=== PATIENT | female | born 1950 | race Caucasian/White ===

== ENCOUNTER → 2023-09-22 14:45 | Outpatient (REF) | payer MEDICARE, OTHER, SELFPAY | LOC: RCS 14:45 | PROVIDERS: ATTENDING PHYSICIAN Family Medicine | DX: E78.00 Pure hypercholesterolemia, unspecified (principal) | CPT/HCPCS: 93306 ==

== ENCOUNTER → 2024-01-24 06:40 | Day surgery (SDC) | payer MEDICARE, OTHER, SELFPAY | LOC: GI 06:40 | PROVIDERS: ATTENDING PHYSICIAN Internal Medicine Gastroenterology | DX: K63.5 Polyp of colon (principal); K57.30 Diverticulosis of large intestine without perforation or abscess without bleeding; K64.8 Other hemorrhoids; R19.4 Change in bowel habit; K59.00 Constipation, unspecified; R19.7 Diarrhea, unspecified; K29.50 Unspecified chronic gastritis without bleeding; R12 Heartburn | CPT/HCPCS: 45380; 43239; 88305; 88342 ==

== ENCOUNTER → 2024-02-04 07:26 | Outpatient (REF) | payer MEDICARE, OTHER, SELFPAY ==
[2024-02-04 08:52] LABS: ALT (SGPT) 25 U/L (0-35); AST (SGOT) 26 U/L (14-36); Albumin 4.4 g/dl (3.5-5.0); Alkaline Phosphatase 73 U/L (38-126); Blood Urea Nitrogen 20 mg/dl (7-17); Calcium 9.8 mg/dl (8.4-10.2); Carbon Dioxide 29 mmol/L (22-30); Chloride 105 mmol/L (98-107); Glucose 107 mg/dl (70-99); HDL Cholesterol 66 mg/dl; LDL Cholesterol, Calculated 117 mg/dl; Potassium 4.6 mmol/L (3.5-5.1); Sodium 141 mmol/L (135-145); Total Bilirubin 0.9 mg/dl (0.2-1.3); Total Cholesterol 199 mg/dl (50-199); Triglyceride 82 mg/dl (10-149); Very Low Density Lipoprotein 16 mg/dl (0-30); eGFR 52.73
[2024-02-04 10:21] LABS: Glycohemoglobin (HgbA1c) 5.6 % (4.0-5.6)
== END ==
LOC: REG 07:26
PROVIDERS: ATTENDING PHYSICIAN Family Medicine
DX: R73.01 Impaired fasting glucose (principal); E78.00 Pure hypercholesterolemia, unspecified; E06.3 Autoimmune thyroiditis
CPT/HCPCS: 36415; 80053; 80061; 83036; 84443

== ENCOUNTER → 2024-06-22 14:22 | Outpatient (REF) | payer MEDICARE, OTHER, SELFPAY | LOC: WDC 14:22 | PROVIDERS: ATTENDING PHYSICIAN Obstetrics & Gynecology; FAMILY PHYSICIAN Family Medicine | DX: Z12.31 Encounter for screening mammogram for malignant neoplasm of breast (principal) | CPT/HCPCS: 77063; 77067 ==

== ENCOUNTER → 2024-09-12 07:22 | Outpatient (REF) | payer MEDICARE, OTHER, SELFPAY ==
[2024-09-12 09:00] LABS: ALT (SGPT) 21 U/L (0-35); AST (SGOT) 24 U/L (14-36); Albumin 4.6 g/dl (3.5-5.0); Alkaline Phosphatase 84 U/L (38-126); Blood Urea Nitrogen 28 mg/dl (7-17); Calcium 9.8 mg/dl (8.4-10.2); Carbon Dioxide 30 mmol/L (22-30); Chloride 103 mmol/L (98-107); Glucose 101 mg/dl (70-99); HDL Cholesterol 74 mg/dl; LDL Cholesterol, Calculated 119 mg/dl; Potassium 4.4 mmol/L (3.5-5.1); Sodium 139 mmol/L (135-145); Total Bilirubin 0.8 mg/dl (0.2-1.3); Total Cholesterol 209 mg/dl (50-199); Total Protein 7.4 g/dl (6.3-8.2); Triglyceride 80 mg/dl (10-149); Very Low Density Lipoprotein 16 mg/dl (0-30)
[2024-09-12 09:17] LABS: Glycohemoglobin (HgbA1c) 5.7 % (4.0-5.6)
[2024-09-12 09:29] LABS: TSH Reflex To Free T4 3.28 uIU/ml (0.47-4.68)
[2024-09-12 09:49] LABS: Vitamin B12 829 pg/ml (239-931)
[2024-09-14 09:02] LABS: SSA 52 (Ro)(ENA) Ab, IgG 1 AU/mL (0-40); SSA 60 (Ro)(ENA) Ab, IgG 1 AU/mL (0-40); SSB (La)(ENA) Ab, IgG 0 AU/mL (0-40)
== END ==
LOC: REG 07:22
PROVIDERS: ATTENDING PHYSICIAN Family Medicine; FAMILY PHYSICIAN Specialist
DX: G60.3 Idiopathic progressive neuropathy (principal); E11.42 Type 2 diabetes mellitus with diabetic polyneuropathy; D51.8 Other vitamin B12 deficiency anemias; R73.01 Impaired fasting glucose; E78.00 Pure hypercholesterolemia, unspecified; E06.3 Autoimmune thyroiditis
CPT/HCPCS: 36415; 80053; 80061; 82607; 82784; 83036; 83521; 84155; 84165; 84443; 86235; 86334

== ENCOUNTER → 2024-09-29 14:45 | Outpatient (REF) | payer MEDICARE, OTHER, SELFPAY | LOC: REG 14:45 | PROVIDERS: ATTENDING PHYSICIAN Specialist; FAMILY PHYSICIAN Family Medicine | DX: G60.3 Idiopathic progressive neuropathy (principal) | CPT/HCPCS: 36415; 83516 ==

== ENCOUNTER → 2025-03-16 10:20 | Outpatient (REF) | payer MEDICARE, OTHER, SELFPAY ==
[2025-03-16 11:52] LABS: ALT (SGPT) 35 U/L (0-35); AST (SGOT) 24 U/L (14-36); Albumin 4.2 g/dl (3.5-5.0); Alkaline Phosphatase 71 U/L (38-126); Blood Urea Nitrogen 19 mg/dl (7-17); Calcium 9.3 mg/dl (8.4-10.2); Carbon Dioxide 27 mmol/L (22-30); Chloride 107 mmol/L (98-107); Glucose 92 mg/dl (70-99); HDL Cholesterol 62 mg/dl; LDL Cholesterol, Calculated 110 mg/dl; Potassium 4.3 mmol/L (3.5-5.1); Sodium 139 mmol/L (135-145); Total Protein 7.0 g/dl (6.3-8.2); Very Low Density Lipoprotein 15 mg/dl (0-30); eGFR 58.75
[2025-03-16 13:23] LABS: Glycohemoglobin (HgbA1c) 5.5 % (4.0-5.6)
== END ==
LOC: REG 10:20
PROVIDERS: ATTENDING PHYSICIAN Family Medicine
DX: R73.01 Impaired fasting glucose (principal); E78.00 Pure hypercholesterolemia, unspecified; E06.3 Autoimmune thyroiditis
CPT/HCPCS: 36415; 80053; 80061; 83036; 84443

== ENCOUNTER 2025-05-09 21:39 | Inpatient (IN) | payer MEDICARE, OTHER, SELFPAY ==
[2025-05-09] VITALS (39 sets, daily range): BP systolic 102–139; BP diastolic 56–98; BMI 34.5
--- NOTE | 2025-05-09 19:20 | ED.GENMED ---
History of Present Illness
General
Chief Complaint: Heart Rate Problem
Source: patient
Exam Limitations: none
Time Seen by Provider: 05/09/25 19:10
Nursing documentation reviewed up to this point in time: agreed with
History of Present Illness
History of Present Illness:
75-year-old female from PCP office with tachyarrhythmia she has been short of breath with fatigue for over a month, difficulty taking a deep breath, no leg edema question of fevers, no history of A-fib,
Past History
Past History
ED Past Medical History: GERD and Other (Diverticulosis, back pain); Negative Arrthythmia
ED Past Surgical History: Other (History of colonoscopy and endoscopy)
Social History
Tobacco: Non-smoker
Alcohol: None
Drug: None
Personal:
Living: with family
Employment: Employed
Review of Systems
Review of Systems
All Other Systems: Not applicable
Constitutional: Reports fever and fatigue
Respiratory: Reports cough and trouble breathing
Cardiac: Reports palpitations; Denies chest pain or diaphoresis
ABD/GI: Reports no symptoms
: Reports no symptoms
Musculoskeletal: Reports no symptoms
Skin: Reports no symptoms
Neurological: Reports weakness
Hematologic/Lymphatic: Reports no symptoms
Phy Exam
Physical Exam
Physical Exam:
Physical Exam
General: Slightly ill-appearing
Neck: No jaundice
Heart: Tachycardia
Lungs: Crackles by the
Abdomen: Nontender
Neuro: alert and oriented. no focal neurological deficits
Skin: no rash
Psychiatric: well kept. interactive and cooperative
Extremities: Edema no calf pain
Course
Orders/Labs/Results
Orders:
Orders
05/09/25 19:02
Electrocardiogram (*1) Urgent
Reason for Study: Chest Pain
Cardiac Monitoring- Treatment ONCE
EKG- Treatment ONCE
IV Insert/Care/Rem.- Treatment PRN
O2 Therapy [RESP] Urgent
Titrate/Wean O2 to maintain O2 sat greater than (%): 90
Special Instructions: Maintain sats >/=90%
Pulse Ox/spot Check [RESP] Urgent
Quantity: 1
Special Instructions: ON ROOM AIR
05/09/25 19:13
Complete Blood Count/With Diff Urgent
Comprehensive Metabolic Panel Urgent
TSH Reflex To Free T4 Urgent
05/09/25 19:14
CR Chest Portable - 1 View Urgent
Comment:
Reason For Exam: sob
Reason Study Needs to be Portable: Patient Unstable
05/09/25 19:19
Add On- LAB Urgent
Tests Added?: pBNP
05/09/25 19:20
Diltiazem HCl [Cardizem] 10 mg IV NOW STA
05/09/25 19:30
Diltiazem 125 mg/125 ml Nss [Cardizem] 125 mg in 125 ml IV PER PROTOCOL
Initial dose in mg/hr, then titrate:: 5
Titrate to keep:: Heart rate 80-100 bpm
Titrate by mg/hr:: 5 mg/hr
Frequency of titrations (minutes):: 15
Maximum dose in mg/hr:: 15
05/09/25 19:35
COVID-19 Antigen Urgent
Source: Nasal Swab
NT-proBNP Urgent
Comment: ADDON
Troponin I Urgent
Influenza A+B Rapid Molecular Urgent
MELY Source: Nasal Swab
Specimen Description:
05/09/25 20:22
Furosemide [Lasix] 60 mg IV NOW STA
Abnormal Lab Results
05/09/25 05/09/25
19:13 19:35
RBC 4.04 L 10^6/uL
(4.20-5.40)
Hgb 11.9 L g/dL
(12.0-16.0)
MCHC 31.7 L g/dL
(33.0-37.0)
Plt Count 505 H 10^3/uL
(130-400)
Absolute Monos (auto) 0.7 H 10^3/uL
(0.1-0.6)
Carbon Dioxide 19 L mmol/L
(22-30)
BUN 27 H mg/dl
(7-17)
Glucose 118 H mg/dl
(70-99)
AST 51 H U/L
(14-36)
ALT 62 H U/L
(0-35)
Troponin I 0.053 H* ng/ml
05/09/25 19:13
05/09/25 19:13
Vital Signs
Initial and Last Documented VS:
Initial Vital Signs
Temp Pulse Resp BP Pulse Ox
98.0 F 160 18 132/77 98
05/09/25 18:59 05/09/25 18:59 05/09/25 18:59 05/09/25 18:59 05/09/25 18:59
Last Documented Vital Signs
Temp Pulse Resp BP Pulse Ox
98.0 F 156 18 110/84 98
05/09/25 18:59 05/09/25 19:35 05/09/25 18:59 05/09/25 19:35 05/09/25 19:22
MDM/Problems Addressed
Differential Diagnosis Includes:
Primary arrhythmia hyperthyroid medication effect pneumonia heart failure
MDM/Problems Addressed:
Tachycardia shortness of breath
Chronic conditions affecting care: HTN
Acute Exacerbation and/or Progression of Chronic Illness: HTN
*Radiology
Radiology exam reviewed: preliminary read by ED provider
*Pulse Oximetry
SaO2: 98
Oxygen Mode of Delivery: Room air
Patient hypoxic: no
*EKG
Interpreted by ED Provider?: Yes
Interpretation: abnormal
Comparison EKG: no comparison EKG present
Heart Rate: 174
Rate: tachycardiac
Rhythm: a-fib and atrial flutter
Ischemia: non-specific ST changes
*User Support Analyst Supervisor Interpretation
Rate: tachycardiac
Interpretation: abnormal
Heart Rate: 174
Rhythm: a-fib
*Critical Care Note
Total Time (30-74mins, 75-104mins- exclusive of procedures): 32
Update Note
Update Note:
8:20 PM chest x-ray noted report noted proBNP noted still tachycardic will require admission
ED Attending Note
-
Portions of this chart may have been created with voice recognition software.� Occasional wrong word or��sound alike� substitutions may have occurred due to the inherent limitations of voice recognition software.
Discharge Plan
Departure
Patient Disposition: Admit
Date of Disposition: 05/09/25
Time of Disposition: 20:23
Admit to: IVU
Presentation/result/management discussed w/ accepting MD/DO: Hospitalist
Patient with high blood pressure during this ER visit?: Yes
Condition: Fair
Covid-19: Not Applicable
Discharge Problem:
Atrial flutter with rapid ventricular response, CHF (congestive heart failure)
Prescriptions:
No Action
acetaminophen [Tylenol] 325 mg Tablet
650 mg PO Q6HPRN PRN (Reason: mild pain)
carboxymethylcellulose sodium [Refresh Tears] 0.5 % Drops
1 drp BOTH EYES TID
levothyroxine [Synthroid] 50 mcg Tablet
50 mcg PO DAILY
timolol 0.5 % Drops
1 drp RIGHT EYE DAILY
Lumigan 0.01 % Drops
1 drp BOTH EYES HS
Dramamine 25 mg Tablet,Chewable
25 mg PO DAILYPRN PRN (Reason: dizzyness)
Referrals:
Abdullahi Perdomo Jr. DO [Family Provider, Internal Medicine]
Interventions
Interventions:
*Risk Screen - Suicide Last Done: 05/09/25 18:59
*General Assessment Last Done: 05/09/25 18:59
*ED- Fall Risk Assessment Last Done: 05/09/25 18:59
*ED COVID-19 Vaccine History Last Done: 05/09/25 18:59
*ED Influenza Vaccine History Last Done: 05/09/25 18:59
ED- Cardiac Assessment Last Done: 05/09/25 18:59
ED- Pulmonary Assessment Last Done: 05/09/25 18:59
Discharge Date and Time
Print Language: MACANESE
[2025-05-09 19:23] LABS: Hematocrit 37.5 % (37.0-47.0); Hemoglobin 11.9 g/dL (12.0-16.0); Mean Corp Hgb Conc. 31.7 g/dL (33.0-37.0); Mean Corpuscular Volume 92.8 fL (81.0-99.0); Nucleated Red Blood Cells % 0 %; Platelet Count 505 10^3/uL (130-400); Red Cell Dist. Width 11.9 % (11.5-14.5)
[2025-05-09] MEDS: CARDIZEM 10 MG IV (19:35)
[2025-05-09] MEDS: CARDIZEM 125 IV (19:41)
[2025-05-09 19:44] LABS: ALT (SGPT) 62 U/L (0-35); AST (SGOT) 51 U/L (14-36); Albumin 3.7 g/dl (3.5-5.0); Alkaline Phosphatase 93 U/L (38-126); Blood Urea Nitrogen 27 mg/dl (7-17); Calcium 9.1 mg/dl (8.4-10.2); Carbon Dioxide 19 mmol/L (22-30); Chloride 107 mmol/L (98-107); Estimated Creatinine Clearance 61 ml/min; Glucose 118 mg/dl (70-99); Potassium 4.2 mmol/L (3.5-5.1); Sodium 137 mmol/L (135-145); Total Protein 6.9 g/dl (6.3-8.2); eGFR > 60.00
[2025-05-09 20:19] LABS: COVID-19 Antigen Negative (Negative); Troponin I 0.053 ng/ml
--- NOTE | 2025-05-09 20:42 | HPS.HSE ---
Addendum entered and electronically signed by Eloy Giron MD 05/09/25 21:29:
Elevated TPNI
Denied CP
No acute ischemic EKG
Acute CHF
New FAF
Probably NMITE
- Trend TPNI
- Await ECHO and DCA Card evaluation
Original Note:
Family Physician
-
Family Physician: Abdullahi Perdomo Jr.
Chief Complaint
-
sent to ER from PCP office for tachyarrhythmia
History of Present Illness
75F
PMHX Hypothyroid, GERD, Diverticulosis
- has been short of breath with fatigue for over a month, difficulty taking a deep breath
- no leg edema
- Tachyarrhythmia at PCP office
No prior HX PAF
Medical History
Past Medical History
Past Medical History: Reports GERD, Hypothyroidism and Other (diverticulosis ); Denies Arrhythmia
Past Surgical History: Reports Other
Social History
Tobacco: Non-smoker
Alcohol: None
Family History
Family History: Not pertinent
Allergies / Home Medications
Allergies reflects when Allergies were last updated in [facility].
Home Medications with original date entered in [facility]
Allergy/Medication List:
Allergies
Allergy/AdvReac Type Severity Reaction Status Date / Time
NKA - No Known Allergies Allergy Unknown Uncoded 07/06/13 09:30
Home Medications
acetaminophen 325 mg tablet (Tylenol) 650 mg PO Q6HPRN PRN mild pain 05/09/25
bimatoprost 0.01 % eye drops (Lumigan) 1 drp BOTH EYES HS Eye Condition 05/09/25
carboxymethylcellulose sodium 0.5 % eye drops (Refresh Tears) 1 drp BOTH EYES TID Eye Condition 05/09/25
dimenhydrinate 25 mg chewable tablet (Dramamine) 25 mg PO DAILYPRN PRN dizzyness 05/09/25
levothyroxine 50 mcg tablet (Synthroid) 50 mcg PO DAILY Thyroid 05/09/25
timolol 0.5 % eye drops 1 drp RIGHT EYE DAILY Eye Condition 05/09/25
Review of Systems
-
Constitutional: Reports No Symptoms
EENT: Reports No Symptoms
Respiratory: Reports No Symptoms and See HPI
Abdomen/GI: Reports No Symptoms
: Reports No Symptoms
Musculoskeletal: Reports No Symptoms
Skin: Reports No Symptoms
Neurological: Reports No Symptoms
Endocrine: Reports No Symptoms
Hematologic/Lymphatic: Reports No Symptoms
Psych: Reports No Symptoms
Physical Exam
Vital Signs
Vital Signs
Temp Pulse Resp BP Pulse Ox
98.0 F 156 18 110/84 98
05/09/25 18:59 05/09/25 19:35 05/09/25 18:59 05/09/25 19:35 05/09/25 19:22
Physical Exam
General: Other (ill appearing )
HEENT: Moist mucous membranes
Respiratory: Rales (at bases )
Cardiac: S1/S2 and Irregular Rhythm; No Murmur or Rub
GI: Soft, Non Tender, Non Distended and Normal Bowel Sounds; No Organomegaly
Rectal: Deferred by Provider
Musculoskeletal: No Edema
Skin: No Rash
Neuro: AO x 3 and Nonfocal/grossly intact
Psych: Calm
Laboratory Results
-
05/09/25 19:13
05/09/25 19:13
Laboratory Results
Total Bilirubin 0.6 mg/dl (0.2-1.3) 05/09/25 19:13
AST 51 U/L (14-36) H 05/09/25 19:13
ALT 62 U/L (0-35) H 05/09/25 19:13
Alkaline Phosphatase 93 U/L (38-126) 05/09/25 19:13
Troponin I 0.053 ng/ml H* 05/09/25 19:35
Data Reviewed
-
Diagnostic Radiology: Report Reviewed by me
Medical Tests (Nuc Med, Echo, EKG etc): Report Reviewed by me
Lab Data: Labs Reviewed by me
Impression/Plan
-
Vital Signs
Temp Pulse Resp BP Pulse Ox
98.0 F 156 18 110/84 98
05/09/25 18:59 05/09/25 19:35 05/09/25 18:59 05/09/25 19:35 05/09/25 19:22
05/09/25
18:59 05/09/25
19:01 05/09/25
19:35
Pulse 160 162 156
Labs
07/20/23 05/09/25
08:03 19:13
WBC 9.7
Hgb 12.7 11.9 L
Plt Count 279 505 H
03/16/25 05/09/25 05/09/25
10:39 19:13 19:35
Carbon Dioxide 27 19 L
BUN 19 H 27 H
Creatinine 1.0 0.9
eGFR 58.75 > 60.00
Hemoglobin A1c 5.5
AST 51 H
ALT 62 H
Troponin I 0.053 H*
Pro-BNP 29783
TSH (Reflex) 4.27
EKG
ATRIAL FLUTTER WITH VARIABLE A-V BLOCK WITH PREMATURE VENTRICULAR OR
ABERRANTLY CONDUCTED COMPLEXES
MINIMAL VOLTAGE CRITERIA FOR LVH, MAY BE NORMAL VARIANT ( Register product )
NONSPECIFIC ST AND T WAVE ABNORMALITY
ABNORMAL ECG
WHEN COMPARED WITH ECG OF 12-Aug-2007 09:08,
MANUAL COMPARISON REQUIRED PREVIOUS ECG IS INCOMPATIBLE
CXR
Mild congestive heart failure.
09/22/23 TTE
- Mild concentric LVH
- Hyperdynamic left ventricular systolic function.
- LVEF 65-70%
- Stage I diastolic dysfunction suggestive of abnormal relaxation.
- Normal RV size. Normal right ventricular systolic function.
- Mild mitral regurgitation.
- Moderate tricuspid regurgitation.
- Estimated PASP 40-45 mmHg.
NO PRIOR hospitalist admission:
ASSESSMENT & PLAN
New onset fast AF - No prior HX
Acute CHF type unknown, suspect HFpEF - No prior HX CHF
- september 2023 TTE with LVEF 65-70
- proBNP > 680045
- CXR suggest CHF
- S/P IV Lasix 60 at ER - cont. IV lasix 40 Daily and f/udaily BMP
- Diltiazem gtt for titration
- Heparin gtt
- ECHO in AM
- daily Wt
- daily IOs
- DCA card consult
Hypothyroid
- stable
- nl TSH on LT4
DVT Px: heparin gtt
Full code
IVU
[2025-05-09] MEDS: LASIX 60 MG IV (21:07)
[2025-05-09] MEDS: HEPARIN 4000 UNITS IV (21:36)
[2025-05-09] MEDS: HEPARIN 25000 UNITS/250 ML IV (21:39)
[2025-05-09 21:57] LABS: APTT 24.2 Sec (23.4-35.0)
[2025-05-10] VITALS (18 sets, daily range): BP systolic 90–145; BP diastolic 48–99; BMI 34.3; BMI 32.3
[2025-05-10] MEDS: XALATAN OPHTHALMIC SOLUTION 1 DROP BOTH EYES ×2 (00:08→22:04)
[2025-05-10] MEDS: MELATONIN 5 MG PO ×2 (03:25→22:04)
[2025-05-10 03:50] LABS: INR 1.14; PT 15.1 Sec (11.4-14.6)
[2025-05-10 03:57] LABS: Troponin I 0.051 ng/ml
[2025-05-10 05:16] LABS: APTT 56.3 Sec (23.4-35.0)
--- NOTE | 2025-05-10 05:25 | EDRN ---
PTT still pending at this time for heparin titration.
[2025-05-10 06:14] LABS: Troponin I 0.050 ng/ml
[2025-05-10] MEDS: SYNTHROID 50 MCG PO (06:59)
[2025-05-10] MEDS: TIMOPTIC 0.5% OPHTHALMIC SOLUTION RIGHT EYE (07:46)
[2025-05-10] MEDS: LASIX 40 MG IV (07:46)
[2025-05-10] MEDS: TIMOPTIC 0.5% OPHTHALMIC SOLUTION 1 DROP RIGHT EYE (07:47)
--- NOTE | 2025-05-10 09:27 | W.PN.HOSP.TC ---
Today's Communication/Plan
-
see A/P
Assessment / Plan
Assessment / Plan
HPI: 74 yo F, PMH Hypothyroidism, GERD, Diverticulosis, who was sent to the ER from PCP office for tachyarrhythmia. Pt c/o shortness of breath with fatigue for over a month, also difficulty taking a deep breath. No leg edema. No prior HX PAF
A/P:
# New Acute CHF unknown type
# New onset A fib RVR POA- spontaneously converted to NSR
# Likely non-MO troponin elevation
Echo from september 2023 with LVEF 65-70%
[place] [address] on admission
CXR suggest CHF
Check ECHO
cont IV lasix 40 daily, follow daily weight etc
s/p diltiazem gtt
Started Heparin gtt, cont
DCA card consulted
# Mild transaminitis likely hepatic congestion
Follow LFT
# Hypothyroidism, stable
TSH 4.27
cont SYSTEMS PROGRAM MANAGER synthroid
DVT Px: heparin gtt
Full code
DW RN
DW at bedside
Anticipated Discharge: 24 - 48 hours
Subjective/Interval History
-
Date of Service: May 10, 2025
Objective Data
-
Labs:
Laboratory Results
05/09/25 05/10/25 05/10/25
21:28 03:32 06:00
PT 15.1 H
INR 1.14
APTT 24.2 56.3 H
Sodium Pending
Potassium Pending
Chloride Pending
Carbon Dioxide Pending
BUN Pending
Creatinine Pending
Glucose Pending
Calcium Pending
Total Bilirubin Pending
AST Pending
ALT Pending
Alkaline Phosphatase Pending
05/10/25
11:35
PT
INR
APTT Pending
Sodium
Potassium
Chloride
Carbon Dioxide
BUN
Creatinine
Glucose
Calcium
Total Bilirubin
AST
ALT
Alkaline Phosphatase
Vital Signs:
Vital Signs
Temp Pulse Resp BP Pulse Ox
36.8 C 77 23 127/69 95
05/10/25 06:55 05/10/25 07:46 05/10/25 06:45 05/10/25 07:46 05/10/25 06:45
Review of Systems
-
History Source: Patient
All other systems: Reviewed and negative
Respiratory: Reports Trouble Breathing (improved )
Physical Exam
-
General: Well Developed, Well Nourished, No Apparent Distress, Comfortable and Conversant; Negative Respiratory Distress
HEENT: Normocephalic, Atraumatic, Nose Appears Normal and Ears Appear Normal; Negative Oxygen
Respiratory: Clear to Auscultation and Non Labored Respirations; Negative Accessory Resp Muscle Use
Cardiac: Regular Rhythm and S1/S2
GI: Soft, Nontender, Nondistended and Normal Bowel Sounds
Skin: Warm and Dry
Neuro: Awake, Alert, Oriented, AO x 3 and Nonfocal/Grossly Intact
Psych: Calm and Intact Judgement/Insight
Data Reviewed
-
Diagnostic Radiology: Report Reviewed by me
Labs: Labs Reviewed by me
--- NOTE | 2025-05-10 10:58 | CON.CAR ---
Addendum entered and electronically signed by Maria L Benjamin MD 05/10/25 13:13:
I saw and examined the patient.
The Spring Salvage Worker's note was reviewed and I agree with the note.
Comment: General: Well developed, well nourished in NAD.
Heart: Non displaced PMI, RRR, no murmurs, No S3, S4, no rubs.
Lungs: Coarse breath sounds
Abdomen: distended.
Extremities: No clubbing, cyanosis and trace edema bilaterally.
Neuro: Grossly nonfocal, awake, alert and oriented x3.
She has been at [facility] twice in the last 2 months with fatigue, shortness of breath and abdominal symptoms and both workups were negative at that time. She now presented to [facility] with continued/worsening symptoms and
was found to be in rapid atrial flutter and heart failure with unknown ejection fraction. She is spontaneously converted to sinus rhythm and is feeling a bit better less abdominal symptoms and nausea. She has gained weight. She denies chest
discomfort but shortness of breath and feeling poorly.
Impression:
Newly diagnosed paroxysmal A flutter with spontaneous conversion to SR
Mildly elevated troponin 05/09/2025
Acute heart failure with volume overload and unknown EF
Abnormal ECG with T wave inversions leads II, III, aVF, V3 through V6
Elevated LFTs
Hypothyroidism
GERD
Glaucoma
Plan at this time continue diuresis with Lasix. Follow input/output/daily weights.
Continue to monitor telemetry. Atrial flutter on presentation now in sinus rhythm. We have started oral anticoagulation with [id number] score of 4. I have discussed risks and benefits of stroke and bleeding at great length.
Outpatient assessment by electrophysiology. Antiarrhythmic drug therapy if recurrence. Rate control and anticoagulation.
Given symptoms and very abnormal EKG in sinus rhythm with T wave inversion (may be T wave memory) cannot exclude ischemia as unifying diagnosis. Assess cardiovascular risk factors including lipids. Plan for Lexiscan nuclear stress test in AM.
Her was at the bedside all questions answered.
Original Note:
Consultation
Consultation Request
Date/Time Consultation Requested: 05/09/2025 at 2244
Date/Time Consultation Performed: 05/10/2025 at 0930
Requesting Provider: Dr. Valadez
Performing Provider: Dr. Maria L Benjamin
Reason for Consultation: SOB and fatigue
Medical History
-
History of Present Illness:
Patient came to [facility] ER last evening with nausea and fatigue and was admitted with newly diagnosed A-fib, evidence of acute HF and an elevated troponin prompting cardiology consultation. Patient has been to the ER at [facility] in
[place] twice in the last month with symptoms of fatigue and SOB, she reports that she had thorough workups there including blood work and ECGs that were all unremarkable and she was told she had a viral illness and discharged to home each time.
For the last week her symptoms have been getting worse and so she saw her PCP yesterday and they checked an ECG that showed atrial flutter and they referred her to the ER. Patient denies any history of atrial arrhythmia. In the ER patient was
started on Cardizem gtt and has had spontaneous conversion to SR, but she is not sure that she has had any symptomatic improvement. There was concern for acute HF with a proBNP of 11,300 and she has been given doses of Lasix 60 mg IV in the ER last
night and then 40 mg IV daily starting today with increased urine output and some improvement in SOB. No complaints of any chest pain, but her ECG is abnormal with T wave inversions and initial troponin was 0.053 and trending down thereafter.
Patient had a stress test years ago for symptoms she does not recall and thinks that it was normal. She sees a cement despatch operator for risk factor modification about once a year, but not recently.
PMH:
Hypothyroidism
GERD
Glaucoma
Past Medical History
Past Medical History: Other (In HPI)
Past Surgical History: None
Social History
Tobacco: Former Smoker
Alcohol: None
Drug: None
Personal:
Living: With Family
Family History
Family History: CAD (She has 2 brothers that have had MIs in their 50s, father had an NM at age 83)
Allergies / Home Medications
Allergy/AdvReac Type Severity Reaction Status Date / Time
NKA - No Known Allergies Allergy Unknown Uncoded 07/06/13 09:30
�Medication �Instructions �Recorded �Confirmed �Type
acetaminophen 325 mg tablet 650 mg PO Q6HPRN PRN mild pain 05/09/25 05/09/25 History
(Tylenol)
bimatoprost 0.01 % eye drops 1 drp BOTH EYES HS Eye Condition 05/09/25 05/09/25 History
(Lumigan)
carboxymethylcellulose sodium 0.5 1 drp BOTH EYES TID Eye Condition 05/09/25 05/09/25 History
% eye drops (Refresh Tears)
dimenhydrinate 25 mg chewable 25 mg PO DAILYPRN PRN dizzyness 05/09/25 05/09/25 History
tablet (Dramamine)
levothyroxine 50 mcg tablet 50 mcg PO DAILY Thyroid 05/09/25 05/09/25 History
(Synthroid)
timolol 0.5 % eye drops 1 drp RIGHT EYE DAILY Eye Condition 05/09/25 05/09/25 History
Review of Systems
-
History Source: Patient and Family ( sitting bedside to help with some of the details on HPI)
All other systems: Negative unless noted
Physical Exam
Vital Signs
Temp Pulse Resp BP Pulse Ox
98.2 F 77 23 127/69 97
05/10/25 06:55 05/10/25 07:46 05/10/25 06:45 05/10/25 07:46 05/10/25 09:49
GEN: NAD, AO x 3
HEENT: EOMI, MMM
LUNGS: RA. Few bibasilar rales, no wheeze
CV: SR on telemetry. Reg, S1/S2, no murmur
ABD: ND
EXT: No edema B/L LE
NEURO: Gross non-focal
SKIN: No rash
Lab Results
05/09/25 19:13
Troponin I Cancelled 05/10/25 16:32
Bvq-[id number]-[id number] Pept 57211 pg/ml 05/09/25 19:35
Impression / Plan
-
PCP: Dr. Perdomo
Cardiology: Dr. Cameron Negron
Impression:
Admitted with acute HF, new A flutter and elevated troponin 05/09/2025
Acute HF unknown EF
Newly diagnosed paroxysmal A flutter with spontaneous conversion to SR
Elevated troponin
Abnormal ECG with T wave inversions leads II, III, aVF, V3 through V6
Elevated LFTs
Hypothyroidism
GERD
Glaucoma
Echo 05/10/2025: Study pending
Plan:
Patient came to [facility] ER last evening with nausea and fatigue and was admitted with newly diagnosed A-fib, evidence of acute HF and an elevated troponin prompting cardiology consultation. Patient has been to the ER at [facility] in
[place] twice in the last month with symptoms of fatigue and SOB, she reports that she had thorough workups there including blood work and ECGs that were all unremarkable and she was told she had a viral illness and discharged to home each time.
For the last week her symptoms have been getting worse and so she saw her PCP yesterday and they checked an ECG that showed atrial flutter and they referred her to the ER. Patient denies any history of atrial arrhythmia. In the ER patient was
started on Cardizem gtt and has had spontaneous conversion to SR, but she is not sure that she has had any symptomatic improvement. There was concern for acute HF with a proBNP of 11,300 and she has been given doses of Lasix 60 mg IV in the ER last
night and then 40 mg IV daily starting today with increased urine output and some improvement in SOB. No complaints of any chest pain, but her ECG is abnormal with T wave inversions and initial troponin was 0.053 and trending down thereafter.
Patient had a stress test years ago for symptoms she does not recall and thinks that it was normal. She sees a cement despatch operator for risk factor modification about once a year, but not recently.
-Initial ECG reviewed by me shows atrial flutter with RVR up to 157 beats a minute and what looks like an aberrant complex, follow-up ECG shows SR with inferior and anterolateral T wave inversions
-Patient had newly diagnosed typical atrial flutter on admission with spontaneous conversion to SR while on Cardizem gtt. remains in SR now on my review of telemetry. Cardizem gtt has been stopped.
-Start Toprol XL 25 mg daily, orders placed by me
-Heparin gtt started overnight and will continue until patient completes stress test planned for 05/11/2025. Patient will eventually transition to Eliquis 5 mg BID (age 74, Cre 0.9) pending results of stress test
-Will arrange for outpatient EP follow-up to discuss long-term management of atrial flutter including possible definitive management with ablation
-Initial troponin 0.053 and trending down thereafter with new anterolateral and inferior T wave inversions on ECG. No complaints of chest pain. Check Lexiscan nuclear stress test in the morning, orders placed by me. Patient has been made NPO and
is now on a caffeine free diet moving forward
-Check echo, study pending
-Patient appears to be in acute HF, EF unknown. Echo pending as noted above. proBNP 11,300
-Patient reports some symptomatic improvement in her SOB following Lasix 60 mg IV x 1 on 05/09/2025 and now ordered Lasix 40 mg IV daily. Patient was not taking a diuretic prior to admission. There is no known history of HF
-Pending results of echo and stress test we can make more comments on management recommendations, but for now we will start Toprol XL 25 mg daily as noted above.
-Eventual consideration for BHARATH/ARB/ARNI/aldosterone antagonist and SGLT2 inhibitor.
-Elevated LFTs could be due to hepatic congestion
-Follow renal function and electrolytes with diuresis
--- NOTE | 2025-05-10 12:09 | W.CHA2DS2VAS ---
[id number] Score
Score
Age in Years (65=0, 65-74=1, >/=75=2): > or = 75
Sex (Female=+1): Female
Congestive Heart Failure History (Yes=+1): Yes
Hypertension History (Yes=+1): No
Stroke/TIA/Thromboembolism History (Yes=+2): No
Vascular Disease History (Yes=+1): No
Diabetes Mellitus (Yes=+1): No
Score >/=2 is otherwise an anticoagulation candidate: 4
[2025-05-10 12:14] LABS: APTT 51.8 Sec (23.4-35.0)
[2025-05-10 12:19] LABS: ALT (SGPT) 74 U/L (0-35); AST (SGOT) 53 U/L (14-36); Albumin 3.8 g/dl (3.5-5.0); Alkaline Phosphatase 94 U/L (38-126); Blood Urea Nitrogen 27 mg/dl (7-17); Calcium 9.2 mg/dl (8.4-10.2); Carbon Dioxide 28 mmol/L (22-30); Chloride 101 mmol/L (98-107); Estimated Creatinine Clearance 50 ml/min; Glucose 117 mg/dl (70-99); Potassium 3.6 mmol/L (3.5-5.1); Sodium 136 mmol/L (135-145); Total Protein 7.0 g/dl (6.3-8.2); eGFR 52.40
[2025-05-10] MEDS: ZOFRAN 4 MG IV ×2 (13:25→21:49)
[2025-05-10] MEDS: TOPROL XL 25 MG PO (14:26)
[2025-05-10 16:54] LABS: Hepatitis C Antibody Negative (Negative)
[2025-05-10] MEDS: HEPARIN 25000 UNITS/250 ML IV (17:25)
[2025-05-10 19:31] LABS: APTT 58.6 Sec (23.4-35.0)
[2025-05-11 03:01] LABS: APTT 109.6 Sec (23.4-35.0)
[2025-05-11 03:33] VITALS: BP 115/55
[2025-05-11 06:00] VITALS: BMI 32.5
[2025-05-11 07:14] VITALS: BP 151/73
[2025-05-11] MEDS: LASIX 40 MG IV (07:45)
[2025-05-11] MEDS: TIMOPTIC 0.5% OPHTHALMIC SOLUTION 1 DROP RIGHT EYE (07:45)
[2025-05-11] MEDS: TOPROL XL 25 MG PO (07:45)
[2025-05-11] MEDS: SYNTHROID 50 MCG PO (07:47)
[2025-05-11] MEDS: LEXISCAN 0.4 MG IV (09:17)
[2025-05-11] MEDS: FLUSH (NSS) 1 FLUSH IV (09:21)
[2025-05-11] MEDS: AMINOPHYLLINE 75 MG IV (09:36)
[2025-05-11] MEDS: HEPARIN 25000 UNITS/250 ML IV (09:52)
--- NOTE | 2025-05-11 10:36 | W.PN.HOSP.TC ---
Today's Communication/Plan
-
see A/P
Assessment / Plan
Assessment / Plan
HPI: 74 yo F, PMH Hypothyroidism, GERD, Diverticulosis, who was sent to the ER from PCP office for tachyarrhythmia. Pt c/o shortness of breath with fatigue for over a month, also difficulty taking a deep breath. No leg edema. No prior HX PAF
A/P:
# New Acute CHF unknown type
# New onset A fib RVR POA- spontaneously converted to NSR
# non-[place] troponin elevation
Echo from september 2023 with LVEF 65-70%
[place] [address] on admission
CXR suggest CHF
Check ECHO
For stress test today
cont IV lasix 40 daily, follow daily weight etc
s/p diltiazem gtt
Cont Heparin gtt with plan to change to OAC later
Card on board
# Mild transaminitis likely hepatic congestion
Follow LFT
# Leucocytosis, likely reactive
check CRP
No fever, cont to monitor
# N/V
Keep NPO with sips of clear
Zofran PRN
restart diet when nausea/vomiting resolves
# Hypothyroidism, stable
TSH 4.27
cont WEBSITE/BLOG EDITOR Synthroid
DVT Px: heparin gtt
Full code
DW RN
DW at bedside
Anticipated Discharge: 24 - 48 hours
Subjective/Interval History
-
Date of Service: May 11, 2025
Objective Data
-
Labs:
Laboratory Results
05/11/25 05/11/25 05/11/25
02:40 06:00 09:00
WBC Pending
Hgb Pending
Hct Pending
Plt Count Pending
APTT 109.6 H Pending
Sodium Pending
Potassium Pending
Chloride Pending
Carbon Dioxide Pending
BUN Pending
Creatinine Pending
Glucose Pending
Calcium Pending
Total Bilirubin Pending
AST Pending
ALT Pending
Alkaline Phosphatase Pending
Vital Signs:
Vital Signs
Temp Pulse Resp BP Pulse Ox
36.9 C 73 16 151/73 95
05/11/25 07:14 05/11/25 07:14 05/11/25 07:14 05/11/25 07:14 05/11/25 07:14
I&O
05/10/25 05/11/25 05/12/25
06:59 06:59 06:59
Intake Total 70 / 70
Output Total 850 / 850
Balance -780 / -780
Review of Systems
-
History Source: Patient
All other systems: Reviewed and negative
Abdomen/GI: Reports Nausea and Vomiting
Physical Exam
-
General: Well Developed, Well Nourished, No Apparent Distress, Comfortable and Conversant; Negative Respiratory Distress
HEENT: Normocephalic, Atraumatic, Nose Appears Normal and Ears Appear Normal; Negative Oxygen
Respiratory: Clear to Auscultation and Non Labored Respirations; Negative Accessory Resp Muscle Use
Cardiac: Regular Rhythm and S1/S2
GI: Soft, Nontender, Nondistended and Normal Bowel Sounds
Skin: Warm and Dry
Neuro: Awake, Alert, Oriented and AO x 3
Psych: Calm and Intact Judgement/Insight
Data Reviewed
-
Diagnostic Radiology: Report Reviewed by me
Labs: Labs Reviewed by me
[2025-05-11 11:10] VITALS: BP 148/75
[2025-05-11 11:29] LABS: Hematocrit 39.1 % (37.0-47.0); Hemoglobin 13.1 g/dL (12.0-16.0); Mean Corp Hgb Conc. 33.5 g/dL (33.0-37.0); Mean Corpuscular Volume 88.5 fL (81.0-99.0); Platelet Count 570 10^3/uL (130-400); Red Cell Dist. Width 12.1 % (11.5-14.5)
[2025-05-11 11:42] LABS: APTT 89.8 Sec (23.4-35.0)
[2025-05-11 12:51] LABS: ALT (SGPT) 167 U/L (0-35); AST (SGOT) 255 U/L (14-36); Albumin 4.6 g/dl (3.5-5.0); Alkaline Phosphatase 114 U/L (38-126); Blood Urea Nitrogen 31 mg/dl (7-17); Calcium 9.3 mg/dl (8.4-10.2); Carbon Dioxide 29 mmol/L (22-30); Chloride 96 mmol/L (98-107); Estimated Creatinine Clearance 36 ml/min; Glucose 136 mg/dl (70-99); HDL Cholesterol 53 mg/dl; LDL Cholesterol, Calculated 132 mg/dl; Magnesium 2.0 mg/dl (1.6-2.3); Potassium 3.6 mmol/L (3.5-5.1); Sodium 135 mmol/L (135-145); Total Protein 8.4 g/dl (6.3-8.2); Very Low Density Lipoprotein 23 mg/dl (0-30); eGFR 36.12
--- NOTE | 2025-05-11 13:31 | W.PN.CARDCBS ---
Addendum entered and electronically signed by Maria L Benjamin MD 05/11/25 16:18:
I saw and examined the patient.
The Funeral Car Chauffeur's note was reviewed and I agree with the note.
Comment: General: Well developed, well nourished in NAD.
Heart: RRR, no murmurs, No S3, S4, no rubs.
Lungs: Clear to auscultation bilaterally, no wheeze, rhonchi, rubs bilaterally,
Extremities: No clubbing, cyanosis or edema bilaterally.
Neuro: Grossly nonfocal, awake, alert and oriented x3
Impression:
Newly diagnosed paroxysmal A flutter with spontaneous conversion to SR
Mildly elevated troponin 05/09/2025
Acute heart failure with volume overload and unknown EF
Abnormal ECG with T wave inversions leads II, III, aVF, V3 through V6
Elevated LFTs
Hypothyroidism
GERD
Glaucoma
From a cardiac point of view she has maintained sinus rhythm. Continue rate control. Continue IV anticoagulation and convert to oral anticoagulation when primary care service workup is complete. She is [id number] score 4.
Continue to monitor telemetry. Atrial flutter on presentation now in sinus rhythm.
Outpatient assessment by electrophysiology.
She does not have chest discomfort. EKGs post atrial arrhythmias with T wave inversions which have been persistent. She underwent Lexiscan nuclear stress test 05/10/2025 during this admission which was negative for ischemia we discussed at length.
She does have heart failure with preserved ejection fraction. She has diuresed and creatinine is increased. Nephrotoxic medication and diuretics held. Agree. Probably will not need further diuretics as outpatient. Volume increase was likely
secondary to rapid atrial flutter.
Primary service will continue workup of abnormal LFTs and thrombocytosis.
From a cardiac point of view she may be stable for discharge tomorrow.
Original Note:
Today's Communication / Plan
-
start Eliquis
stop heparin
hold diuretics
follow renal fxn
w/u for elevated LFTs
Impression / Plan
-
PCP: Dr. Perdomo
Cardiology: Dr. Cameron Negron
Impression:
Admitted with acute HF, new A flutter and elevated troponin 05/09/2025
Acute HF unknown EF
Newly diagnosed paroxysmal A flutter with spontaneous conversion to SR
Elevated troponin
Abnormal ECG with T wave inversions leads II, III, aVF, V3 through V6
Elevated LFTs
Hypothyroidism
GERD
Glaucoma
Echo 05/11/2025: Pending
Lexiscan nuclear stress test 05/11/2025 normal perfusion, EF 68%
Plan:
Patient came to [facility] ER 05/09/25 with nausea and fatigue - admitted with newly diagnosed A-fib, evidence of acute HF and elevated troponin prompting cardiology consultation. Patient has been to the ER at [facility] in [place]
twice in the last month with symptoms of fatigue and SOB, she reports that she had thorough workups there including blood work and ECGs that were all unremarkable and she was told she had a viral illness and discharged to home each time. For the
last week her symptoms have been getting worse and so she saw her PCP 05/09/2025 and they checked an ECG that showed atrial flutter and they referred her to the ER. Patient denies any history of atrial arrhythmia. In the ER patient was started on
Cardizem gtt and has had spontaneous conversion to SR, but she is not sure that she has had any symptomatic improvement. There was concern for acute HF with a proBNP of 11,300 and she has been given doses of Lasix 60 mg IV on admission then 40 mg
IV daily 05/10 today with increased urine output and some improvement in SOB. No complaints of any chest pain, but her ECG abnormal with T wave inversions and initial troponin was 0.053 and trending down thereafter. Patient had a stress test years
ago for symptoms she does not recall and thinks that it was normal. She sees a derrick builder for risk factor modification about once a year but not recently.
1. Atrial flutter
-Initial ECG 05/09/2025 atrial flutter with RVR up to 157 beats a minute and what looks like an aberrant complex. Follow-up ECG shows SR with inferior and anterolateral T wave inversions
-spontaneous conversion to SR while on Cardizem gtt. Remains in NSR.
-Heparin gtt started 05/10, it was continued until patient completed stress test today 05/11/2025 in case diagnostic cath needed. Stress test without ischemia so will stop Heparin and transition to Eliquis 5 mg BID (age 74, Cre 0.9)
-Will arrange for outpatient EP follow-up to discuss long-term management of atrial flutter including possible definitive management with ablation
2. Elevated troponin
-Initial troponin 0.053 and trending down thereafter with new anterolateral and inferior T wave inversions on ECG.
-no chest pain
-Lexiscan nuclear stress test 05/11/2025: no perfusion abnormalities
-stop Heparin
-echo pending
3. Acute HF, EF unknown
-Patient appears to be in acute HF, EF unknown. Echo pending as noted above. proBNP 11,300 on admit
-SOB improved w/ IV Lasix. Currently on Lasix 40 mg IV daily. Patient was not taking a diuretic prior to admission. There is no known history of HF
-Creatinine bumped to 1.5 today (0.9 on admit 05/09)
-wt down 12 lbs since admit, hold Lasix for now and repeat BMP in am
-Pending results of echo will make more rec for GDMT. Toprol XL 25 mg daily started 05/10
-Eventual consideration for BHARATH/ARB/ARNI/aldosterone antagonist and SGLT2 inhibitor if renal fxn allows.
-Elevated LFTs- ?hepatic congestion, however now LFTs uptrending despite 12 lb diuresis, and pt c/o nausea, consider other cause of LFT abnl- abd U/S ordered
-Follow renal function and electrolytes with diuresis
Progress Note - General Internal Medicine Physician
Subjective
Date of Service: May 11, 2025
still with nausea
no CP
maintaining NSR
Objective
Labs:
05/11/25 11:19
05/11/25 11:19
Labs
Hgb 13.1 g/dL (12.0-16.0) 05/11/25 11:19
Hct 39.1 % (37.0-47.0) 05/11/25 11:19
Plt Count 570 10^3/uL (130-400) H 05/11/25 11:19
PT 15.1 Sec (11.4-14.6) H 05/10/25 03:32
INR 1.14 05/10/25 03:32
APTT 89.8 Sec (23.4-35.0) H 05/11/25 11:19
Sodium 135 mmol/L (135-145) 05/11/25 11:19
Potassium 3.6 mmol/L (3.5-5.1) 05/11/25 11:19
BUN 31 mg/dl (7-17) H 05/11/25 11:19
Creatinine 1.5 mg/dL (0.6-1.0) H 05/11/25 11:19
Glucose 136 mg/dl (70-99) H 05/11/25 11:19
Troponins
05/09/25 05/10/25 05/10/25
19:35 03:08 05:19
Troponin I 0.053 H* 0.051 H* 0.050 H*
05/10/25 05/10/25
10:32 16:32
Troponin I Cancelled Cancelled
Vital Signs and I&O:
Vital Signs
Temp Pulse Resp BP Pulse Ox
98.5 F 77 16 148/75 95
05/11/25 11:10 05/11/25 11:10 05/11/25 11:10 05/11/25 11:10 05/11/25 11:10
Vital Signs
Temp Pulse Resp BP Pulse Ox
98.5 F 77 16 148/75 95
05/11/25 11:10 05/11/25 11:10 05/11/25 11:10 05/11/25 11:10 05/11/25 11:10
Intake & Output
05/09/25 05/10/25 05/11/25 05/12/25
06:59 06:59 06:59 06:59
Intake Total 70 / 70
Output Total 850 / 850
Balance -780 / -780
Physical Exam
Physical Exam
GEN: No distress, awake, Ox3
HEENT: supple, anicteric, mmm
LUNGS: CTA, no wheezes/rales
CV: Reg, S1/S2, no murmur
ABD: soft, BS+, NT/ND
EXT: No edema
NEURO: Gross non-focal
SKIN: No rash
--- NOTE | 2025-05-11 14:01 | CM ---
Addendum entered by Nichelle Phelps 05/11/25 14:38:
Zero copay for Eliquis per [facility].
Original Note:
retail manager in training reviewed patient's chart and met with patient and spouse at bedside, patient lives with spouse in a 2 story home, patient is independent with adl's and ambulation home no needs when stable.
PCP: Abdullahi Perdomo
Pharmacy: [facility] in [place]
[2025-05-11 14:32] LABS: C-Reactive Protein 26.60 mg/L (0.0-10.00)
[2025-05-11] MEDS: ZOFRAN 4 MG IV ×2 (14:45→22:59)
[2025-05-11 15:59] VITALS: BP 146/70
[2025-05-11 19:38] VITALS: BP 132/69
[2025-05-11] MEDS: ELIQUIS 5 MG PO (21:34)
[2025-05-11] MEDS: MELATONIN 5 MG PO (21:34)
[2025-05-11] MEDS: XALATAN OPHTHALMIC SOLUTION 1 DROP BOTH EYES (21:35)
[2025-05-11 23:17] VITALS: BP 130/68
[2025-05-12 03:00] VITALS: BP 129/97
[2025-05-12] MEDS: SYNTHROID 50 MCG PO (05:54)
[2025-05-12 06:00] VITALS: BMI 32.3
[2025-05-12 07:45] VITALS: BP 143/75
[2025-05-12] MEDS: ELIQUIS 5 MG PO ×2 (07:57→20:37)
[2025-05-12] MEDS: TIMOPTIC 0.5% OPHTHALMIC SOLUTION 1 DROP RIGHT EYE (07:57)
[2025-05-12] MEDS: TOPROL XL 25 MG PO (07:57)
[2025-05-12 08:08] LABS: APTT 36.8 Sec (23.4-35.0)
[2025-05-12 08:09] LABS: Hematocrit 37.4 % (37.0-47.0); Hemoglobin 12.3 g/dL (12.0-16.0); Mean Corp Hgb Conc. 32.9 g/dL (33.0-37.0); Mean Corpuscular Volume 92.3 fL (81.0-99.0); Platelet Count 434 10^3/uL (130-400); Red Cell Dist. Width 12.0 % (11.5-14.5)
[2025-05-12 09:57] LABS: ALT (SGPT) 144 U/L (0-35); AST (SGOT) 100 U/L (14-36); Albumin 3.7 g/dl (3.5-5.0); Alkaline Phosphatase 100 U/L (38-126); Blood Urea Nitrogen 32 mg/dl (7-17); Calcium 9.2 mg/dl (8.4-10.2); Carbon Dioxide 30 mmol/L (22-30); Chloride 96 mmol/L (98-107); Estimated Creatinine Clearance 38 ml/min; Glucose 120 mg/dl (70-99); Magnesium 2.1 mg/dl (1.6-2.3); Potassium 3.9 mmol/L (3.5-5.1); Sodium 132 mmol/L (135-145); Total Protein 7.0 g/dl (6.3-8.2); eGFR 39.23
--- NOTE | 2025-05-12 10:50 | W.PN.HOSP.TC ---
Addendum entered and electronically signed by Shanelle Valadez MD 05/12/25 14:40:
Updated on the phone on CT head finding:
an approximately 5.4 cm hypodensity with areas of mild cortical hyperdensity within the inferolateral right frontal lobe which likely represents a subacute infarction with developing cortical laminar necrosis.
Informed that we can get MRI brain for complete workup.
MRI brain, MRA brain and Carotid US ordered (avoiding contrast study such as CT head and neck with pt's current ANNY).
Also informed that pt could follow up with Neuro outpt. I do not feel urgent neuro CS is necessary in the hospital, as the finding suggest subacute infarction, and that the patient has been started with anticoagulation for new onset A-fib.
Can also check LDL and A1c for completeness sake.
Original Note:
Today's Communication/Plan
-
see A/P
Assessment / Plan
Assessment / Plan
HPI: 74 yo F, PMH Hypothyroidism, GERD, Diverticulosis, who was sent to the ER from PCP office for tachyarrhythmia. Pt c/o shortness of breath with fatigue for over a month, also difficulty taking a deep breath. No leg edema. No prior HX PAF
A/P:
# New Acute HF with presented EF
# New onset A fib RVR POA- spontaneously converted to NSR
# non-[place] troponin elevation
Echo from september 2023 with [place]VEF 65-[place] [address] [place] admission; CXR suggest CHF
Echo 05/11 showed Mild to moderate mitral valve regurgitation. Ejection fraction is 58%. Moderate tricuspid regurgitation.
s/p stress test 05/11: No perfusion abnormalities seen at rest or with pharmacologic agent. No evidence of ischemia or infarction.
IV lasix 40 daily on hold with ANNY , per card, Probably will not need further diuretics as outpatient. Volume increase was likely secondary to rapid atrial flutter.
follow daily weight etc
s/p diltiazem gtt
Heparin gtt -> Eliquis 5 mg BID
Card on board
# Mild transaminitis likely hepatic congestion
# N/V, resolved
Follow LFT
Check Abd US with Doppler in setting of new onset A fib
start clears and ADAT
Zofran PRN
# Confusion at home per , ?cognitive impairment vs possible UTI vs others
Check CT head (in setting of new onset A fib)
Check UA reflex culture
start empiric ceftriaxone while awaiting culture result
Monitor MS
# Leucocytosis, likely reactive
CRP mildly elevated at 20
No fever, cont to monitor
Follow blood cultures, check UA reflex culture
start empiric ceftriaxone
# Hypothyroidism, stable
TSH 4.27
cont SERVICE OPERATIONS MANAGER Synthroid
DVT Px: Eliquis
Full code
DW RN
DW at bedside extensively. Answered all questions
total time 51 min
Anticipated Discharge: Within 24 hours
Subjective/Interval History
-
Date of Service: May 12, 2025
Objective Data
-
Labs:
Laboratory Results
05/12/25 05/12/25
06:37 08:54
WBC 18.3 H
Hgb 12.3
Hct 37.4
Plt Count 434 H D
APTT 36.8 H
Sodium Cancelled 132 L
Potassium Cancelled 3.9
Chloride Cancelled 96 L
Carbon Dioxide Cancelled 30
BUN Cancelled 32 H
Creatinine Cancelled 1.4 H
Glucose Cancelled 120 H
Calcium Cancelled 9.2
Total Bilirubin Cancelled 1.7 H
AST Cancelled 100 H
ALT Cancelled 144 H
Alkaline Phosphatase Cancelled 100
Vital Signs:
Vital Signs
Temp Pulse Resp BP Pulse Ox
37.3 C 81 18 143/75 94
05/12/25 07:45 05/12/25 07:45 05/12/25 07:45 05/12/25 07:45 05/12/25 07:45
I&O
05/11/25 05/12/25 05/13/25
06:59 06:59 05:59
Intake Total 70 / 70 160 / 160
Output Total 850 / 850
Balance -780 / -780 160 / 160
Review of Systems
-
History Source: Patient
All other systems: Reviewed and negative
Abdomen/GI: Denies Abdominal Pain, Nausea or Vomiting
Physical Exam
-
General: Well Developed, Well Nourished, No Apparent Distress, Comfortable and Conversant; Negative Respiratory Distress
HEENT: Normocephalic, Atraumatic, Nose Appears Normal and Ears Appear Normal; Negative Oxygen
Respiratory: Clear to Auscultation and Non Labored Respirations; Negative Accessory Resp Muscle Use
Cardiac: Regular Rhythm and S1/S2
GI: Soft, Nontender, Nondistended and Normal Bowel Sounds
Skin: Warm and Dry
Neuro: Awake, Alert, Oriented and AO x 3
Psych: Calm and Intact Judgement/Insight
Data Reviewed
-
Diagnostic Radiology: Report Reviewed by me
Labs: Labs Reviewed by me
[2025-05-12 11:00] VITALS: BP 133/69
[2025-05-12] MEDS: ROCEPHIN 1000 MG IV (11:39)
[2025-05-12] MEDS: STERILE WATER FOR INJECTION 10 ML IV (11:40)
--- NOTE | 2025-05-12 13:24 | W.PN.CARDCBS ---
Today's Communication / Plan
-
Maintain beta-haile
Obtain anticoagulation
Overall stable from a cardiac standpoint at present. No objection to discharge home. Will sign off
Impression / Plan
-
PCP: Dr. Perdomo
Cardiology: Dr. Cameron Negron
Impression:
Admitted with acute HF, new A flutter and elevated troponin 05/09/2025
Acute HF unknown EF
Newly diagnosed paroxysmal A flutter with spontaneous conversion to SR
CVA: CT of head 05/12/2025 finds 5.4 cm hypodense area of mild cortical hyperdensity within the inferior lateral right frontal lobe which is felt to represent subacute infarction with developing cortical laminar necrosis.
Elevated troponin
Abnormal ECG with T wave inversions leads II, III, aVF, V3 through V6
Elevated LFTs
Hypothyroidism
GERD
Glaucoma
Echo 05/11/2025: Pending
Lexiscan nuclear stress test 05/11/2025 normal perfusion, EF 68%
Plan:
Patient came to [facility] ER 05/09/25 with nausea and fatigue - admitted with newly diagnosed A-fib, evidence of acute HF and elevated troponin prompting cardiology consultation. Patient has been to the ER at [facility] in [place]
twice in the last month with symptoms of fatigue and SOB, she reports that she had thorough workups there including blood work and ECGs that were all unremarkable and she was told she had a viral illness and discharged to home each time. For the
last week her symptoms have been getting worse and so she saw her PCP 05/09/2025 and they checked an ECG that showed atrial flutter and they referred her to the ER. Patient denies any history of atrial arrhythmia. In the ER patient was started on
Cardizem gtt and has had spontaneous conversion to SR, but she is not sure that she has had any symptomatic improvement. There was concern for acute HF with a proBNP of 11,300 and she has been given doses of Lasix 60 mg IV on admission then 40 mg
IV daily 05/10 today with increased urine output and some improvement in SOB. No complaints of any chest pain, but her ECG abnormal with T wave inversions and initial troponin was 0.053 and trending down thereafter. Patient had a stress test years
ago for symptoms she does not recall and thinks that it was normal. She sees a payroll benefits administrator for risk factor modification about once a year but not recently.
From a cardiac point of view she has maintained sinus rhythm. Continue rate control. Continue IV anticoagulation and convert to oral anticoagulation when primary care service workup is complete. She is [id number] score 4.
Continue to monitor telemetry. Atrial flutter on presentation now in sinus rhythm.
Outpatient assessment by electrophysiology.
She does not have chest discomfort. EKGs post atrial arrhythmias with T wave inversions which have been persistent. She underwent Lexiscan nuclear stress test 05/10/2025 during this admission which was negative for ischemia we discussed at length.
She does have heart failure with preserved ejection fraction. She has diuresed and creatinine is increased. Nephrotoxic medication and diuretics held. Agree. Probably will not need further diuretics as outpatient. Volume increase was likely
secondary to rapid atrial flutter.
Primary service will continue workup of abnormal LFTs and thrombocytosis.
Atrial flutter
Spontaneous conversion to SR while on Cardizem gtt. Remains in NSR.
Follow-up ECG shows SR with inferior and anterolateral T wave inversions
Will arrange for outpatient EP follow-up to discuss long-term management of atrial flutter including possible definitive management with ablation
Maintain Toprol-XL 25 mg daily for rate control
Elevated troponin and abnormal ECG
Echo 05/11/2025 without wall motion abnormality.
Heparin gtt started 05/10, continued until stress test today 05/11/2025. Stress test without ischemia so Heparin stopped and transitioned to Eliquis 5 mg BID (age 74, Cre 0.9)
No plan for further ischemic evaluation this hospital stay
Acute HFpEF, proBNP 11,300 on admit. Patient was not taking a diuretic prior to admission. There is no known history of HF prior to this admission.
Decompensated heart failure this admission likely related to atrial flutter with rapid ventricular rates and now in sinus rhythm.
SOB improved w/ IV Lasix. wt down 12 lbs since admit
Creatinine bumped to 1.5 on 05/11/2025.
Diuretic has been discontinued and creatinine improved today to 1.4
CT of the head finds subacute CVA. Etiology likely her atrial tachyarrhythmia (atrial flutter)
Anticoagulation initiated this hospital stay and further recommendations as per neurology and primary service
No further recommendations from a cardiology standpoint. Will sign off, please call us with any further questions.
Progress Note - Non Acoustic Operator
Subjective
Date of Service: May 12, 2025
No chest pain shortness of breath palpitations or dizziness
Objective
Labs:
05/12/25 06:37
05/12/25 08:54
Labs
Hgb 12.3 g/dL (12.0-16.0) 05/12/25 06:37
Hct 37.4 % (37.0-47.0) 05/12/25 06:37
Plt Count 434 10^3/uL (130-400) H D 05/12/25 06:37
PT 15.1 Sec (11.4-14.6) H 05/10/25 03:32
INR 1.14 05/10/25 03:32
APTT 36.8 Sec (23.4-35.0) H 05/12/25 06:37
Sodium 132 mmol/L (135-145) L 05/12/25 08:54
Potassium 3.9 mmol/L (3.5-5.1) 05/12/25 08:54
BUN 32 mg/dl (7-17) H 05/12/25 08:54
Creatinine 1.4 mg/dL (0.6-1.0) H 05/12/25 08:54
Glucose 120 mg/dl (70-99) H 05/12/25 08:54
Troponins
05/09/25 05/10/25 05/10/25
19:35 03:08 05:19
Troponin I 0.053 H* 0.051 H* 0.050 H*
05/10/25 05/10/25
10:32 16:32
Troponin I Cancelled Cancelled
Vital Signs and I&O:
Vital Signs
Temp Pulse Resp BP Pulse Ox
98.4 F 74 18 133/69 97
05/12/25 11:00 05/12/25 11:00 05/12/25 11:00 05/12/25 11:00 05/12/25 11:00
Vital Signs
Temp Pulse Resp BP Pulse Ox
98.4 F 74 18 133/69 97
05/12/25 11:00 05/12/25 11:00 05/12/25 11:00 05/12/25 11:00 05/12/25 11:00
Intake & Output
05/10/25 05/11/25 05/12/25 05/13/25
06:59 06:59 06:59 05:59
Intake Total 70 / 70 160 / 160
Output Total 850 / 850
Balance -780 / -780 160 / 160
Physical Exam
Physical Exam
Well-appearing no acute distress
Regular rate and rhythm normal S1 and S2 no S3 no S4
Lungs clear auscultation bilaterally
Extremities no clubbing sinus or edema
Soft nontender nondistended Norvasc
[2025-05-12 15:10] VITALS: BP 109/62
[2025-05-12 15:24] LABS: LDL Cholesterol, Direct 96 mg/dl
[2025-05-12 16:53] LABS: Urine Character Cloudy (Clear)
[2025-05-12 17:25] LABS: Urine Squamous Cell >30 /LPF (Few)
[2025-05-12 19:00] VITALS: BP 117/55
[2025-05-12] MEDS: MELATONIN 5 MG PO (20:37)
[2025-05-12] MEDS: XALATAN OPHTHALMIC SOLUTION 1 DROP BOTH EYES (20:38)
[2025-05-12 23:00] VITALS: BP 115/56
[2025-05-13] VITALS (7 sets, daily range): BP systolic 108–137; BP diastolic 49–67; PULSE 67; O2SAT 94; BMI 32.1
[2025-05-13] MEDS: SYNTHROID 50 MCG PO (05:34)
[2025-05-13] MEDS: TIMOPTIC 0.5% OPHTHALMIC SOLUTION 1 DROP RIGHT EYE (08:09)
[2025-05-13] MEDS: ELIQUIS 5 MG PO ×2 (08:09→20:09)
[2025-05-13] MEDS: TOPROL XL 25 MG PO (08:09)
[2025-05-13 09:15] LABS: Hematocrit 36.5 % (37.0-47.0); Hemoglobin 12.3 g/dL (12.0-16.0); Mean Corp Hgb Conc. 33.7 g/dL (33.0-37.0); Mean Corpuscular Volume 88.4 fL (81.0-99.0); Platelet Count 404 10^3/uL (130-400); Red Cell Dist. Width 12.2 % (11.5-14.5)
[2025-05-13 10:07] LABS: ALT (SGPT) 89 U/L (0-35); AST (SGOT) 42 U/L (14-36); Albumin 3.6 g/dl (3.5-5.0); Alkaline Phosphatase 98 U/L (38-126); Blood Urea Nitrogen 34 mg/dl (7-17); Calcium 8.9 mg/dl (8.4-10.2); Carbon Dioxide 27 mmol/L (22-30); Chloride 96 mmol/L (98-107); Estimated Creatinine Clearance 38 ml/min; Glucose 97 mg/dl (70-99); Magnesium 2.3 mg/dl (1.6-2.3); Potassium 3.9 mmol/L (3.5-5.1); Sodium 134 mmol/L (135-145); Total Protein 6.8 g/dl (6.3-8.2); eGFR 39.23
--- NOTE | 2025-05-13 10:12 | W.PN.HOSP.TC ---
Addendum entered and electronically signed by Shanelle Valadez MD 05/21/25 15:03:
# Non ischemic myocardial injury
Original Note:
Today's Communication/Plan
-
see A/P
Assessment / Plan
Assessment / Plan
HPI: 74 yo F, PMH Hypothyroidism, GERD, Diverticulosis, who was sent to the ER from PCP office for tachyarrhythmia. Pt c/o shortness of breath with fatigue for over a month, also difficulty taking a deep breath. No leg edema. No prior HX PAF
A/P:
# New Acute HF with preserved EF
# New onset A fib RVR POA- spontaneously converted to NSR
# non-VA troponin elevation
s/p diltiazem gtt
Echo from september 2023 with LVEF 65-70[place] [address] [place] admission; CXR suggest CHF
Echo 05/11 showed Mild to moderate mitral valve regurgitation. Ejection fraction is 58%. Moderate tricuspid regurgitation.
s/p stress test 05/11: No perfusion abnormalities seen at rest or with pharmacologic agent. No evidence of ischemia or infarction.
IV lasix 40 daily on hold with ANNY , per card, Probably will not need further diuretics as outpatient. Volume increase was likely secondary to rapid atrial flutter.
Heparin gtt -> Eliquis 5 mg BID
Card on board
# Mild transaminitis likely hepatic congestion
# N/V, resolved
Follow LFT , improving
Abd US WNL
N/V resolved, cont low cholesterol diet for now, SPL eval
Zofran PRN
# Confusion at home per , for about [address] head showed 5.4 cm hypodensity with areas of mild cortical hyperdensity within the inferolateral right frontal lobe which likely represents a subacute infarction with developing cortical laminar necrosis.
possible confusion due to subacute stroke (in setting of new onset A fib)
Check MRI brain, MRA brain and carotid US (avoid contrasted study with elevated SCr)
Can follow up Neuro outpt given subacute nature and new A fib has been addressed
follow urine Cx, cont current empiric ceftriaxone
LDL 96, start Lipitor 40 mg (with improving LFT) in setting of likely subacute stroke, informed
A1C 5.5%
Monitor MS
PT OT eval
# Leucocytosis, improving
CRP mildly elevated at 20
No fever, cont to monitor
blood cultures negative
Follow urine culture
Cont empiric ceftriaxone
# Hypothyroidism, stable
TSH 4.27
cont HEEL TRIMMER Synthroid
DVT Px: Eliquis
Full code
DW RN
DW at bedside
total time 51 min
Anticipated Discharge: 24 - 48 hours
Subjective/Interval History
-
Date of Service: May 13, 2025
Objective Data
-
Labs:
Laboratory Results
05/13/25
07:57
WBC 15.7 H
Hgb 12.3
Hct 36.5 L
Plt Count 404 H
Sodium 134 L
Potassium 3.9
Chloride 96 L
Carbon Dioxide 27
BUN 34 H
Creatinine 1.4 H
Glucose 97
Calcium 8.9
Total Bilirubin 1.2
AST 42 H
ALT 89 H
Alkaline Phosphatase 98
Vital Signs:
Vital Signs
Temp Pulse Resp BP Pulse Ox
37.2 C 74 18 108/53 94
05/13/25 08:20 05/13/25 08:20 05/13/25 08:20 05/13/25 08:20 05/13/25 08:20
I&O
05/12/25 05/13/25 05/14/25
06:59 05:59 06:59
Intake Total 160 / 160 240 / 240
Balance 160 / 160 240 / 240
Review of Systems
-
History Source: Patient
All other systems: Reviewed and negative
Abdomen/GI: Denies Abdominal Pain, Nausea or Vomiting
Physical Exam
-
General: Well Developed, Well Nourished, No Apparent Distress, Comfortable and Conversant; Negative Respiratory Distress
HEENT: Normocephalic, Atraumatic, Nose Appears Normal and Ears Appear Normal; Negative Oxygen
Respiratory: Clear to Auscultation and Non Labored Respirations; Negative Accessory Resp Muscle Use
Cardiac: Regular Rhythm and S1/S2
GI: Soft, Nontender, Nondistended and Normal Bowel Sounds
Skin: Warm and Dry
Neuro: Awake, Alert, Oriented and AO x 3
Psych: Calm and Intact Judgement/Insight
Data Reviewed
-
Diagnostic Radiology: Report Reviewed by me
Labs: Labs Reviewed by me
[2025-05-13] MEDS: STERILE WATER FOR INJECTION 10 ML IV (11:15)
[2025-05-13] MEDS: ROCEPHIN 1000 MG IV (11:15)
[2025-05-13 11:16] LABS: Glycohemoglobin (HgbA1c) 5.8 % (4.0-5.9)
[2025-05-13] MEDS: ATIVAN 2 MG IV (12:42)
[2025-05-13] MEDS: NSS (PRESERVATIVE FREE) 1 ML IV (12:43)
--- NOTE | 2025-05-13 16:13 | PTOTSP ---
Speech Therapy Evaluation:
Pt with acute risk factor of dysphagia including acute CVA. Evaluation somewhat limited due to somnolence/lethargy with recent dose of Ativan. Despite this, no overt s/sx of aspiration across session. CXR without PNA, pt on room air, and without
dysphagia hx.
Recommend:
1. Regular solids and thin liquids
2. Medications as tolerated
3. General aspiration and reflux precautions
4. STAFF TOXICOLOGIST to follow to monitor tolerance of diet and for formal cognitive linguistic evaluation
[2025-05-13] MEDS: LIPITOR 40 MG PO (17:23)
[2025-05-13] MEDS: XALATAN OPHTHALMIC SOLUTION 1 DROP BOTH EYES (20:09)
[2025-05-13] MEDS: MELATONIN 5 MG PO (21:22)
[2025-05-14] VITALS (7 sets, daily range): BP systolic 106–131; BP diastolic 47–73; PULSE 67; O2SAT 95; BMI 32.4
[2025-05-14] MEDS: SYNTHROID 50 MCG PO (05:58)
[2025-05-14] MEDS: TOPROL XL 25 MG PO (08:15)
[2025-05-14] MEDS: ELIQUIS 5 MG PO ×2 (08:15→20:38)
[2025-05-14] MEDS: TIMOPTIC 0.5% OPHTHALMIC SOLUTION 1 DROP RIGHT EYE (08:16)
[2025-05-14 09:15] LABS: Hematocrit 40.9 % (37.0-47.0); Hemoglobin 13.3 g/dL (12.0-16.0); Mean Corp Hgb Conc. 32.5 g/dL (33.0-37.0); Mean Corpuscular Volume 91.1 fL (81.0-99.0); Platelet Count 455 10^3/uL (130-400); Red Cell Dist. Width 12.2 % (11.5-14.5)
--- NOTE | 2025-05-14 09:42 | CON.NEURO4 ---
Addendum entered and electronically signed by Juve Harvey MD 05/14/25 12:26:
Studies reviewed.
I have personally examined the patient. I reviewed and agree with the FIELD SALES TRAINER's Note.
My addenda:
Awake, interactive. Prefers to put head down on pillow on table. No acute distress.
Speech intact.
Follows 2-step requests w/o difficulty. No tremor.
Extra-ocular movements grossly intact.
Facial movements full and symmetric. Hearing intact to normal conversational volume.
Normal UE movements bilaterally.
Neck: full ROM.
Chest: no dyspnea
Heart: no JVD
Ext: (-) Clubbing, (-) Cyanosis, (-) Edema
IMPRESSIONS/RECOMMENDATIONS:
Abrupt onset of change in normal behavior beginning approximately 2 weeks ago most likely due to right frontal ischemic stroke which was at that time acute and now demonstrated by MRI of the brain.
It is possible the patient has underlying etiology for all of the symptoms simultaneously including amyloidosis without cerebral amyloidosis
Continue apixaban
Continue atorvastatin 40 mg daily
Provide medical educational materials
D/W patient / family / nursing
All questions answered.
Will continue to follow as outpatient.
Original Note:
Documented by User: Nayely García NP 05/14/25 11:57
Consultation - Neurology 4
-
CONSULTING PHYSICIAN: Juve Harvey MD
REFERRING PHYSICIAN: Hospitalists/Dr. Jackson
DICTATED BY: LYNDSEY Marley
DATE/TIME OF REQUEST: 05/14/25
DATE/TIME OF CONSULTATION: 05/14/25
Reason for Consultation: Stroke
History of Present Illness:
This is a 74-year-old right-handed female who has presented to the hospital with on 05/09/25 from her PCP with report of one month of shortness of breath, fatigue, and tachy-arrythmia on EKG. Patient's spouse at bedside reports that on 04/17/25 she
had an abdominal study to evaluate for intractable nausea and constipation, and later that night she began to feel extremely short of breath. She was evaluated at [facility] and told that it was likely a musculoskeletal problem. Following
that she proceeded to have fevers once in a while and upset stomach, and was evaluated at [facility] ER again and was told it was a viral illness. Then about 2 weeks ago, he reports noticing that she was not acting like her typical self. He would
find her sitting starring at a blank TV screen or watching a [place]ian speaking channel for extended periods even though she doesn't speak Albanian. Then last week, he notes that she didn't get ready for work as she typically does. He kept prompting
her to get ready and hours later she still hadn't done so. He decided to bring her to her PCP for evaluation, at which time she was referred to the ER for evaluation. CT head was obtained on arrival and demonstrated a large right frontal subacute
stroke. She was also noted to be in HFpEF, non-PR elevated troponin, elevated LFTs, and ANNY. She was started on apixaban for stroke prevention in the setting of paroxysmal Aflutter/fib. Patient denies any headache, dizziness, vision changes,
speech/swallow difficulty, numbness, and weakness.
Past Medical History: Paroxysmal Aflutter, HFpEF, hypothyroidism, glaucoma, migraines
Surgical History: None.
Family History: Reviewed and noncontributory.
Social History: Former smoker. Rare alcohol. Denies illicit drug use.
Allergies: No known allergies.
Home Medications: See below.
Review of Symptoms:
Patient denies any fever, headache, chest pain, shortness of breath, or symptoms.
�Per the HPI.�All systems are reviewed negative except above.
Physical Exam:
The patient is afebrile, abdomen is nondistended, breathing is unlabored, skin is warm and dry, no edema.
NIH Stroke Scale:
I performed the NIH stroke scale on the patient on 05/14/25 at 1030. The patient scored 1 points on the NIH stroke scale assessment, which were assigned as follows: See below.
Neurologic Examination:
The patient is awake, alert and oriented x 3. She is able to follow commands and answer questions appropriately. Flat affect. There is no aphasia or dysarthria. On cranial nerve assessment, pupils are 3 mm bilateral, round and reactive to light and
accommodation. Visual lundy are full. Extraocular movements are intact. Facial sensations are intact and bilaterally symmetrical, there is no facial asymmetry. Hearing is intact bilaterally to normal conversation volume. Tongue palate and uvula are
midline. Sternocleidomastoid strengths are full bilaterally. Motor strengths are 5/5 bilateral upper and lower extremities on medical research [place] scale. There is no drift or involuntary movement noted. There was extinction noted on double
simultaneous stimulation on the left side. Coordination is intact by finger to nose bilaterally.
Lab Results: See below.
Neuro Imaging:
1. MRI brain 05/13/25: There is a large focus of diffusion signal involving the lateral right frontal lobe, insula and right wallis radiata with relatively normalized ADC consistent with a subacute infarction. There are areas of blooming artifact
along the cortex which may represent petechial hemorrhage or developing cortical laminar necrosis.
2. MRA COW 05/13/25: This examination demonstrates no focal hemodynamically significant stenosis, aneurysm or occlusion.
3. Carotid ultrasound 05/14/25: Mild soft carotid plaque is identified bilaterally. Carotid velocity measurements are consistent with less than 50% stenosis bilaterally. Vertebral artery flow is antegrade bilaterally.
Differentials for the patient's presentation include:
1. Large subacute right frontal lobe, insula, and wallis radiata ischemic infarct producing confusion and behavior changes; etiology of stroke is likely cardioembolic in the setting of newly discovered paroxysmal aflutter/afib.
Patient has the following risk factors for their symptoms: Paroxysmal Afib/flutter not on OAC
IV Tenecteplase/IAT candidacy: Not a candidate due to being outside of the time window.
Recommendations:
-Continue newly initiated apixaban for stroke prevention.
-Goal normotension.
-Carotid ultrasound is pending.
-LDL goal <70. LDL is 96. Continue newly initiated atorvastatin 40mg daily.
-Goal normoglycemia, hbA1c is 5.8.
-Neurological checks per unit guidelines. No role for NIHSS at this time as the stroke occurred several weeks ago.
-Provide patient's spouse with a stroke education packet.
-PT/OT/ST evaluations.
-Follow-up with Neurology as an outpatient.
Discussed patient care with: Dr. Harvey, the patient, patient's spouse
Vital Signs and Labs
-
Vital Signs and Labs:
Vital Signs
Temp Pulse Resp BP Pulse Ox
97.9 F 67 12 124/73 95
05/14/25 07:05 05/14/25 07:05 05/14/25 07:05 05/14/25 07:05 05/14/25 07:05
Lab Results
05/14/25 09:04
05/14/25 09:04
PT 15.1 Sec (11.4-14.6) H 05/10/25 03:32
INR 1.14 05/10/25 03:32
APTT 36.8 Sec (23.4-35.0) H 05/12/25 06:37
Sodium 132 mmol/L (135-145) L 05/14/25 09:04
Potassium 3.8 mmol/L (3.5-5.1) 05/14/25 09:04
BUN 34 mg/dl (7-17) H 05/14/25 09:04
Glucose 121 mg/dl (70-99) H 05/14/25 09:04
Calcium 9.3 mg/dl (8.4-10.2) 05/14/25 09:04
Dht-R-Fxdvpxtllti Pept 93225 pg/ml 05/09/25 19:35
LDL Cholesterol Direct 96 mg/dl 05/12/25 08:54
LDL Cholesterol, Calc 132 mg/dl 05/11/25 11:19
Medications
-
Active Medications
Generic Name Dose Route Start Last Admin
Trade Name Freq PRN Reason Stop Dose Admin
Acetaminophen 650 mg 05/09/25 22:32
Acetaminophen 325 Mg Tablet PO 06/06/25 22:31
On Hold: 05/11/25 14:12 Q6HPRN PRN
mild pain
Apixaban 5 mg 05/11/25 20:00 05/14/25 08:15
Apixaban (Eliquis) 5 Mg Tablet PO 06/08/25 19:59 5 mg
BID ROSIO Administration
Atorvastatin Calcium 80 mg 05/14/25 10:15 05/14/25 10:05
Atorvastatin (Lipitor) 40 Mg Tablet PO 06/10/25 10:14 80 mg
QPM ROSIO Administration
Ceftriaxone Sodium 1,000 mg 05/12/25 12:00 05/13/25 11:15
Ceftriaxone 1000 Mg / 10 Ml Vial IV 1,000 mg
Q24H ROSIO Administration
Furosemide 40 mg 05/10/25 08:00 05/11/25 07:45
Furosemide 40 Mg (10 Mg/Ml) 4 Ml Vial IV 06/07/25 07:59 40 mg
On Hold: 05/11/25 14:14 DAILY ROSIO Administration
Latanoprost 1 drop 05/09/25 23:00 05/13/25 20:09
Latanoprost 0.005% (Ophthalmic Solution) 2.5 Ml Bottle BOTH EYES 06/06/25 22:59 1 drop
HS ROSIO Administration
Levothyroxine Sodium 50 mcg 05/10/25 06:00 05/14/25 05:58
Levothyroxine 50 Mcg Tablet PO 06/07/25 05:59 50 mcg
DAILY@0600 ROSIO Administration
Melatonin 5 mg 05/10/25 22:00 05/13/25 21:22
Melatonin 5 Mg Tablet PO 06/07/25 21:59 5 mg
HS ROSIO Administration
Metoprolol Succinate 25 mg 05/10/25 13:00 05/14/25 08:15
Metoprolol 25 Mg Extended Release Tablet PO 06/07/25 12:59 25 mg
DAILY ROSIO Administration
Ondansetron HCl 4 mg 05/10/25 13:20 05/14/25 10:06
Ondansetron 4 Mg/2 Ml Vial IV 06/07/25 13:19 4 mg
Q6HPRN PRN Administration
NAUSEA/VOMITING
Sodium Chloride 0 flush 05/09/25 23:00
Sodium Chloride 0.9% (Flush) Syringe IV 06/06/25 22:59
PER PROTOCOL ROSIO
Sterile Water 10 ml 05/12/25 12:00 05/13/25 11:15
Sterile Water For Injection 10 Ml Vial IV 06/09/25 11:59 10 ml
Q24H ROSIO Administration
Timolol Maleate 1 drop 05/10/25 08:00 05/14/25 08:16
Timolol 0.5% (Ophthalmic Solution) Bottle RIGHT EYE 06/07/25 07:59 1 drop
DAILY ROSIO Administration
Home Medications
�Medication �Instructions �Recorded
acetaminophen 325 mg tablet 650 mg PO Q6HPRN PRN mild pain 05/09/25
(Tylenol)
bimatoprost 0.01 % eye drops 1 drp BOTH EYES HS Eye Condition 05/09/25
(Lumigan)
carboxymethylcellulose sodium 0.5 1 drp BOTH EYES TID Eye Condition 05/09/25
% eye drops (Refresh Tears)
dimenhydrinate 25 mg chewable 25 mg PO DAILYPRN PRN dizzyness 05/09/25
tablet (Dramamine)
levothyroxine 50 mcg tablet 50 mcg PO DAILY Thyroid 05/09/25
(Synthroid)
timolol 0.5 % eye drops 1 drp RIGHT EYE DAILY Eye Condition 05/09/25
NIH Stroke Score
Subsequent NIH Scale
Date of Subsequent NIH Scale: 05/14/25
Time of Subsequent NIH Scale: 10:30
NIH Stroke Score
Level of Consciousness: 0 - Alert
LOC Questions: 0-Answers both correctly
LOC Commands: 0-Performs both correctly
Best Horizontal Gaze: 0-Normal
Visual Lundy: 0=Normal, no visual loss
Facial Palsy: 0=Normal, symmetrical
Motor - Right Arm: 0=No drift 10 seconds
Motor - Left Arm: 0=No drift 10 seconds
Motor - Right Le-No drift 5 seconds
Motor - Left Le-No drift 5 seconds
Limb Ataxia: 0-Absent
Sensation: 0-Normal
Best Language: 0-No aphasia
Dysarthria: 0-Normal
Extinction and Inattention: 1-Sensory inattention
NIH Total Score:: 1
Modified [place] (mRS) Score
Modified [place] Scale (mRS): Moderate disability. Requires some help, able to walk unassisted.
Score: 3
Alteplase Contraindication
Inclusion and Exclusion criteria reviewed: Yes
Reasons for NON-Tx with Thrombolytics ABSOLUTE Exclusions: Greater than 4.5 hrs from onset of sxs

Documented by User: Juve Harvey MD 05/14/25 12:15
NIH Stroke Score
NIH Stroke Score
NIH Total Score:: 1
Modified [place] (mRS) Score
Score: 3
[2025-05-14 09:50] LABS: ALT (SGPT) 66 U/L (0-35); AST (SGOT) 31 U/L (14-36); Albumin 3.9 g/dl (3.5-5.0); Alkaline Phosphatase 104 U/L (38-126); Blood Urea Nitrogen 34 mg/dl (7-17); Calcium 9.3 mg/dl (8.4-10.2); Carbon Dioxide 29 mmol/L (22-30); Chloride 95 mmol/L (98-107); Estimated Creatinine Clearance 41 ml/min; Glucose 121 mg/dl (70-99); Potassium 3.8 mmol/L (3.5-5.1); Sodium 132 mmol/L (135-145); Total Protein 7.5 g/dl (6.3-8.2); eGFR 42.88
[2025-05-14] MEDS: LIPITOR 80 MG PO ×2 (10:05→17:09)
[2025-05-14] MEDS: ZOFRAN 4 MG IV (10:06)
--- NOTE | 2025-05-14 13:24 | PTOTSP ---
Speech-Language Therapy
Bedside cognitive-communication assessment completed given results of MRI (infarct). Pt scored 16/30 on [place] Cognitive Assessment (MOCA). Normal scores are considered to be 26 or higher. Points deducted on visuospatial tasks, recall, attention,
reasoning, and language/naming. Pt was slow to respond within structured tasks. Per 's report, pt is 'slower' than normal. Pt provided with outpatient brochure and education on purpose of speech and language therapy.
Recommend:
1.�Ongoing ST at acute care level to target speech/language and cognitive skills
2. Continue ST in next level of care
--- NOTE | 2025-05-14 14:32 | CM ---
Chart reviewed. Care ongoing.
Neuro consulted
Therapy rec home health services at d/c
Plan: Home w/ services
--- NOTE | 2025-05-14 16:36 | W.PN.HOSP.TC ---
Today's Communication/Plan
-
MRI brain shows stroke. Consulted neurology.
Assessment / Plan
Assessment / Plan
74F with Hypothyroidism, GERD, Diverticulosis, p/w SOB/fatigue, found to have tachyarrhythmia.
A/P:
New Acute HF with preserved EF
due to [place] [address] [place] admission; CXR suggests CHF
Echo 05/11 showed Mild to moderate mitral valve regurgitation. Ejection fraction is 58%. Moderate tricuspid regurgitation. EF down from 65-70% in 10/02
elevated troponin - stress test performed 05/11, no e/o ischemia or infarction
well diuresed will IV Lasix - now OFF after Cr bump. No diuretics on discharge.
Cardiology consulted, now signed off
New onset AF with RVR
converted to NSR
s/p diltiazem gtt
on admit placed on Heparin gtt, now OFF and started Eliquis 5 mg BID
Subacute stroke
Pt w/3 weeks of confusion at home per
CTH with 5.4 cm hypodensity with areas of mild cortical hyperdensity within the inferolateral right frontal lobe which likely represents a subacute infarction with developing cortical laminar necrosis.
MRI brain confirms subacute stroke
MRA Head and carotid dopplers do not show occlusion
Neurology consulted.
LDL 96, started statin
A1C 5.5%
PT/OT rec Home
Mild transaminitis
likely hepatic congestion
pt with n/v, improved
LFTs improving
Abd US WNL
Zofran PRN
Leukocytosis
mild, improving
CRP mildly elevated at 20
No fever, cont to monitor
blood cultures negative
UCx NGTD
stop ceftriaxone
Hypothyroidism
TSH 4.27
cont Synthroid
DVT Px: Eliquis
Full code
Anticipated Discharge: Within 24 hours
Subjective/Interval History
-
Date of Service: May 14, 2025
Patient notes constipation, usually has BM every 4-5 days and takes senna. Also some nausea. Her is at bedside. All questions answered as able.
Objective Data
-
Labs:
Laboratory Results
05/14/25
09:04
WBC 13.2 H
Hgb 13.3
Hct 40.9
Plt Count 455 H
Sodium 132 L
Potassium 3.8
Chloride 95 L
Carbon Dioxide 29
BUN 34 H
Creatinine 1.3 H
Glucose 121 H
Calcium 9.3
Total Bilirubin 1.0
AST 31
ALT 66 H
Alkaline Phosphatase 104
Vital Signs:
Vital Signs
Temp Pulse Resp BP Pulse Ox
97.9 F 77 18 106/47 95
05/14/25 15:00 05/14/25 15:00 05/14/25 15:00 05/14/25 15:00 05/14/25 15:00
I&O
05/13/25 05/14/25 05/15/25
05:59 06:59 06:59
Intake Total 240 / 240 840 / 840
Balance 240 / 240 840 / 840
Review of Systems
-
All other systems: Reviewed and negative
Physical Exam
-
General: No Apparent Distress
HEENT: Moist Mucous Membranes, Anicteric and PERRLA
Respiratory: Clear to Auscultation; Negative Wheezes, Rales or Rhonchi
Cardiac: Regular Rhythm and S1/S2; Negative Murmur, Rub or Gallop
GI: Soft, Nontender, Nondistended and Normal Bowel Sounds
Musculoskeletal: No Edema
Skin: Warm and Dry; Negative Rash, Ulcers or Lesions
Neuro: Awake and AO x 3
Hematologic / Lymphatic: No Lymphadenopathy
Psych: Calm
Data Reviewed
-
CT Scan: Report Reviewed by me and Discussed with Physician
MRI: Report Reviewed by me (There is a large focus of diffusion signal involving the lateral right frontal lobe, insula and right wallis radiata with relatively normalized ADC consistent with a subacute infarction. There are areas of blooming
artifact along the cortex which may represent petechial hemorrhage or developing chanell), Discussed with Physician, Discussed with Patient and Discussed with Family
Labs: Labs Reviewed by me, Discussed with Patient and Discussed with Family
[2025-05-14] MEDS: MIRALAX 17 GRAMS PO (17:09)
[2025-05-14] MEDS: SENOKOT-S 1 TABLET PO (20:38)
[2025-05-14] MEDS: MELATONIN 5 MG PO (21:59)
[2025-05-14] MEDS: XALATAN OPHTHALMIC SOLUTION 1 DROP BOTH EYES (22:00)
[2025-05-14] MEDS: TUMS CHEWABLE TABLET 200 MG PO (22:05)
[2025-05-15 06:00] VITALS: BMI 31.7
[2025-05-15] MEDS: SYNTHROID 50 MCG PO (06:37)
[2025-05-15 07:00] VITALS: BP 108/43
[2025-05-15] MEDS: ELIQUIS 5 MG PO (08:11)
[2025-05-15] MEDS: TIMOPTIC 0.5% OPHTHALMIC SOLUTION 1 DROP RIGHT EYE (08:11)
[2025-05-15] MEDS: MIRALAX 17 GRAMS PO (08:11)
[2025-05-15] MEDS: SENOKOT-S 1 TABLET PO (08:11)
[2025-05-15] MEDS: TOPROL XL 25 MG PO (08:11)
[2025-05-15 08:40] LABS: Hematocrit 36.9 % (37.0-47.0); Hemoglobin 12.4 g/dL (12.0-16.0); Mean Corp Hgb Conc. 33.6 g/dL (33.0-37.0); Mean Corpuscular Volume 87.9 fL (81.0-99.0); Nucleated Red Blood Cells % 0 %; Platelet Count 390 10^3/uL (130-400); Red Cell Dist. Width 12.3 % (11.5-14.5)
[2025-05-15 08:59] LABS: Blood Urea Nitrogen 31 mg/dl (7-17); Calcium 9.4 mg/dl (8.4-10.2); Carbon Dioxide 29 mmol/L (22-30); Chloride 100 mmol/L (98-107); Estimated Creatinine Clearance 41 ml/min; Glucose 112 mg/dl (70-99); Potassium 3.7 mmol/L (3.5-5.1); Sodium 133 mmol/L (135-145); eGFR 42.88
[2025-05-15 11:33] VITALS: BP 130/64
--- NOTE | 2025-05-15 12:25 | PN.CDI ---
CDI
- -
CDI:
Physician Documentation Request
Admit Date: 05/09/25 21:39
Dear Doctor Manuel,
Clinical Indicators:
Patient admitted with new onset A Fib and acute HFpEF
11/3 PN, 'elevated troponin - stress test performed 05/11, no e/o ischemia or infarction'
Troponin trend:
05/09/25 05/10/25 05/10/25
19:35 03:08 05:19
Troponin I 0.053 H* 0.051 H* 0.050 H*
Based on the above, could you clarify in the progress notes, the appropriate diagnosis, if significant, that supports the above abnormalities and additional evaluation, monitoring and/or treatment rendered:
Non ischemic myocardial injury
Troponin elevation only
Other, please specify
Use of terms such as suspected, likely, concern for, or probable (associated with a specific diagnosis that is being evaluated, monitored, or treated as if it exists) are acceptable and can be coded in the inpatient setting, when documented at the
time of discharge.
Thank you,
DOROTHY Pandey RN
CDI Specialist
available via tiger text
Please use your independent medical judgment in providing your response.
[2025-05-15] MEDS: CITROMA 300 ML PO (13:01)
--- NOTE | 2025-05-15 14:15 | CM ---
Patient is for discharge to home when stable, patient is agreeable to [facility], [facility] liaison notified.
Plan; Home with [facility] when stable.
[2025-05-15 14:59] VITALS: BP 121/62
[2025-05-15 15:04] VITALS: BP 121/62; BP 146/71; PULSE 68; O2SAT 95
[2025-05-15 15:15] VITALS: BP 121/62; BP 146/71; PULSE 68; O2SAT 95
--- NOTE | 2025-05-15 15:25 | VNURNOTE ---
Home Health Liaison met with patient and spouse at bedside to discuss [facility] nurse/therapy, visits, schedule and homebound status. Both are agreeable and understand that visits at home will be 2-3 x per week to assess and teach medical management.
Both are aware that [facility] will contact them for start of care within 1-2 days after discharge from . Provided contact number for [facility].
[facility] referral completed in [facility].
--- NOTE | 2025-05-15 15:34 | W.DCSUMMARY ---
Discharge Summary
Discharge Data
Date of Admission: 05/09/25
Date of Discharge: 05/15/25
Total time spent discharging patient (in min): 35
-
Pending Results: No
Hospital Course
Attending physician on day of discharge:
Sangeetha Jackson MD
Admission diagnosis:
A- flutter with RVR
Discharge diagnosis:
One-time A- flutter
Acute CHF
Secondary diagnoses:
Non-TN troponin elevation
Subacute CVA
Reactive leukocytosis
Consultations:
Cardiology
Neurology
Procedures:
None
Hospital course:
Patient was admitted from her PCP office with complaints of shortness of breath and fatigue, found to have tachyarrhythmia. She had a flutter with RVR, had diltiazem drip, heparin drip, converted to normal sinus, with no recurrence. Heparin drip
was changed to Eliquis. She was seen by cardiology. She was also found to have CHF on admission, with EF 50%, down from 65 to 70% last year. She was diuresed with IV Lasix, her creatinine went up slightly and it was held, she was maintained off
Lasix and was not discharged with any. She had elevated troponin, stress test was performed and there was no evidence of ischemia or infarction. Her family noted 3 weeks of confusion at home, she had CT head which showed possible subacute infarct,
this was confirmed with an MRI brain but there was a right frontal lobe subacute stroke. Neurology was consulted, she was started on statin. She also was found to have some nausea, LFT showed mild transaminitis, which improved with diuresis, it
was felt to be secondary to hepatic congestion, abdominal ultrasound was performed with which was within normal limits. She also had leukocytosis, but no fever, her blood and urine cultures were negative, she was placed on empiric ceftriaxone which
was stopped. She was seen by PT and OT and ST who felt she would benefit by having home services.
Diagnostic Findings:
MRI brain: There is a large focus of diffusion signal involving the lateral right frontal lobe, insula and right wallis radiata with relatively normalized ADC consistent with a subacute infarction. There are areas of blooming artifact along the
cortex which may represent petechial hemorrhage or developing cortical laminar necrosis.
Abdominal ultrasound: Normal ultrasound evaluation of the abdominal vasculature.
Lexiscan stress test: Inconclusive ECG for ischemia given the pharmacological study.
No perfusion abnormalities seen at rest or with pharmacologic agent. No evidence of ischemia or infarction.
Systolic function is normal. The ejection fraction is 68%.
Stress Risk is moderate risk study (1 - 3% TN or /year) due to pharmacologic agent used.
Echo: 1. Mild to moderate mitral valve regurgitation.
2. Ejection fraction is 58% by volumetric assesment.
3. Right ventricular size and systolic function are within normal limits.
4. Moderate tricuspid regurgitation. Estimated pulmonary artery pressure of 36 mmHg assuming a right atrial pressure of 3 mmHg.
Prior cholecystectomy.
Physical exam on discharge:
Gen: NAD
HEENT: PERRLA, EOMI, MMM, neck supple
Cards: RRR, no M/G/R
Resp: Lungs CTAB, no W/R/R
GI: soft, NT/ND/NABS
MSK: No edema
Skin: warm and dry, no rash, ulcer or lesions
Heme: No LAD
Psych: Calm
Neuro: AAOx3, flat affect
Discharge disposition:
Home with HHC
Discharge Plan
-
Patient Disposition: Home with Home Care
Discharge Diagnosis/Procedures: Acute heart failure, subacute stroke
Diet: Low Cholesterol and Low Sodium
Activity: As tolerated
Driving Restrictions: Not until seen by your Dr
Other Services: PT, OT and ST
Instructions: Stroke (DC), *PCP/Other [facility] Heart Failure Instructions
Referrals:
Abdullahi Perdomo Jr., DO [Family Provider, Internal Medicine]
Juve Harvey MD [Active, Neurology]
Alejandro Navarro DO [Active, Cardiology] - 06/12/25 1:00 pm
Referral Note: You have a cardiology followup up appointment with Dr Navarro at the [place] office. Dr Navarro is a specialist with atrial flutter.
Prescriptions:
New
atorvastatin 40 mg Tablet
80 mg PO QPM 30 Days Qty: 60 0RF
melatonin 5 mg Tablet
5 mg PO HS Qty: 0 0RF
Eliquis 5 mg Tablet
5 mg PO BID 30 Days Qty: 60 0RF
polyethylene glycol 3350 17 gram Powder In Packet
17 g PO DAILY Qty: 0 0RF
sennosides-docusate sodium [Senna Plus] 8.6-50 mg Tablet
1 tab PO BID Qty: 0 0RF
metoprolol succinate 25 mg Tablet Extended Release 24 Hr
25 mg PO DAILY 30 Days Qty: 30 0RF
Continued
acetaminophen [Tylenol] 325 mg Tablet
650 mg PO Q6HPRN PRN (Reason: mild pain)
carboxymethylcellulose sodium [Refresh Tears] 0.5 % Drops
1 drp BOTH EYES TID
levothyroxine [Synthroid] 50 mcg Tablet
50 mcg PO DAILY
timolol 0.5 % Drops
1 drp RIGHT EYE DAILY
Lumigan 0.01 % Drops
1 drp BOTH EYES HS
Discontinued
Dramamine 25 mg Tablet,Chewable
25 mg PO DAILYPRN PRN (Reason: dizzyness)
Discharge Orders:
Discharge Patient (As Directed); Ordered 05/15/25
Ordered By: Sangeetha Jackson
Discharge Date and Time
Print Language: ESTONIAN
[2025-05-15] MEDS: LIPITOR 80 MG PO (17:10)
== END 2025-05-15 17:55 | disposition home health service (06) | DRG 291 ==
LOC: 4 WEST ACU 21:39
PROVIDERS: Internal Medicine; ADMITTING PHYSICIAN Internal Medicine; ATTENDING PHYSICIAN Internal Medicine; CONSULT PHYSICIAN Psychiatry & Neurology Neurology; EMERGENCY PHYSICIAN Emergency Medicine; FAMILY PHYSICIAN Family Medicine; OTHER PHYSICIAN Internal Medicine Cardiovascular Disease
DX: I50.31 Acute diastolic (congestive) heart failure (principal); I63.9 Cerebral infarction, unspecified; I48.3 Typical atrial flutter; E85.9 Amyloidosis, unspecified; N17.9 Acute kidney failure, unspecified; I5A Non-ischemic myocardial injury (non-traumatic); E03.9 Hypothyroidism, unspecified; K57.30 Diverticulosis of large intestine without perforation or abscess without bleeding; K76.1 Chronic passive congestion of liver; K21.9 Gastro-esophageal reflux disease without esophagitis; H40.9 Unspecified glaucoma; D72.829 Elevated white blood cell count, unspecified; I48.91 Unspecified atrial fibrillation; I25.10 Atherosclerotic heart disease of native coronary artery without angina pectoris; Z11.52 Encounter for screening for COVID-19; Z79.899 Other long term (current) drug therapy; Z79.01 Long term (current) use of anticoagulants; Z87.891 Personal history of nicotine dependence
CPT/HCPCS: 70450; 70544; 70551; 71045; 76700; 78452; 80048; 80053; 80061; 81003; 81015; 82248; 83036; 83721; 83735; 83880; 84443; 84484; 85025; 85027; 85610; 85730; 86140; 86803; 87040; 87086; 87502; 87811; 92523; 92610; 93005; 93017; 93306; 93880; 93975; 97116; 97129; 97162; 97167; 97530; 97535; A9500; J2785

== ENCOUNTER 2025-05-29 12:42 | Emergency (ER) | payer MEDICARE, OTHER, SELFPAY ==
[2025-05-29] VITALS (8 sets, daily range): BP systolic 107–143; BP diastolic 47–91
[2025-05-29 13:09] LABS: Hematocrit 39.1 % (37.0-47.0); Hemoglobin 12.6 g/dL (12.0-16.0); Mean Corp Hgb Conc. 32.2 g/dL (33.0-37.0); Mean Corpuscular Volume 90.9 fL (81.0-99.0); Nucleated Red Blood Cells % 0 %; Platelet Count 371 10^3/uL (130-400); Red Cell Dist. Width 12.2 % (11.5-14.5)
[2025-05-29 13:32] LABS: ALT (SGPT) 27 U/L (0-35); AST (SGOT) 27 U/L (14-36); Albumin 3.8 g/dl (3.5-5.0); Alkaline Phosphatase 106 U/L (38-126); Blood Urea Nitrogen 23 mg/dl (7-17); Calcium 9.4 mg/dl (8.4-10.2); Carbon Dioxide 26 mmol/L (22-30); Chloride 101 mmol/L (98-107); Glucose 125 mg/dl (70-99); Lipase 123 U/L (23-300); Potassium 4.1 mmol/L (3.5-5.1); Sodium 135 mmol/L (135-145); Total Protein 7.4 g/dl (6.3-8.2); eGFR 52.40
--- NOTE | 2025-05-29 18:13 | ED.GENMED ---
History of Present Illness
General
Chief Complaint: Abdominal Symptoms
Source: patient and spouse
Exam Limitations: none
Time Seen by Provider: 05/29/25 17:23
Nursing documentation reviewed up to this point in time: agreed with
History of Present Illness
History of Present Illness:
Patient to emergency department with complaint of abdominal pain, nausea, vomiting, diarrhea. Reports symptoms have been intermittent for the past few weeks. She reports loss of appetite and weakness. She denies fever or chills. To the emergency
department by her for evaluation. She states she was recently admitted for atrial fibrillation and reports symptoms have been worse since that admission.
Past History
Past History
ED Past Medical History: GERD and Other (Diverticulosis, back pain); Negative Arrthythmia
ED Past Surgical History: Other (History of colonoscopy and endoscopy)
Social History
Tobacco: Non-smoker
Alcohol: None
Drug: None
Personal:
Living: with family
Employment: Employed
Review of Systems
Review of Systems
Allergies reviewed?: Yes
All Other Systems: ROS reviewed and negative except as documented in HPI and ROS
Constitutional: Reports no symptoms
EENT: Reports no symptoms
Respiratory: Reports no symptoms
Cardiac: Reports no symptoms
ABD/GI: Reports abdominal pain (Diffuse), nausea, vomiting and diarrhea
: Reports no symptoms
Musculoskeletal: Reports no symptoms
Skin: Reports no symptoms
Neurological: Reports no symptoms
Psychiatric: Reports no symptoms
Phy Exam
General Physical Exam
General Presentation: well appearing and mild distress
General age: appears stated age
General Skin: warm and dry
General Habitus: normal
General Mental: alert
Cardiovascular Exam
Cardiovascular Exam: regular rate/rhythm and no edema
Pulmonary Exam
Pulmonary Exam: lungs clear and no respiratory distress
Gastrointestinal Exam
Gastrointestinal Exam: normal bowel sounds, soft, no organomegaly, no pulsatile mass, non distended and no cva tenderness
Palpation: generalized: Mild tenderness
Neurological Exam
Neurological Exam: alert, oriented x3 and CN II-XII intact
Musculoskeletal Exam
Musculoskeletal Exam: full ROM
Skin Exam
Skin Exam: normal color and warm/dry
Psychiatric Exam
Psychiatric Exam: normal mood/affect
Course
Orders/Labs/Results
Orders:
Orders
05/29/25 12:56
Comprehensive Metabolic Panel Urgent
Lipase Urgent
05/29/25 12:57
Complete Blood Count/With Diff Urgent
05/29/25 18:05
0.9% Sodium Chloride 1000 ml [Nss] 1,000 ml IV BOLUS
Ondansetron Injectable [Zofran] 4 mg IV NOW STA
05/29/25 18:11
CT Abd/pelvis W Iv Cont Urgent
Comment:
Reason For Exam: diffuse pain, n/v/d
05/29/25 22:03
Urinalysis Reflex To Culture Urgent
Date Specimen was Collected: 05/29/25
Time Specimen was Collected: 21:52
Urine Microscopic Reflex Cult Urgent
Urine Culture Urgent
MELY Source: U
Specimen Description:
Date Specimen was Collected: 05/29/25
Time Specimen was Collected: 21:52
Abnormal Lab Results
05/29/25 05/29/25 05/29/25
12:56 12:57 22:03
WBC 12.1 H 10^3/uL
(4.8-10.8)
MCHC 32.2 L g/dL
(33.0-37.0)
Abs Immat Gran (auto) 0.1 H 10^3/uL
(0-0.05)
Absolute Neuts (auto) 9.4 H 10^3/uL
(1.4-6.5)
Absolute Monos (auto) 0.7 H 10^3/uL
(0.1-0.6)
Neutrophils % 78.1 H %
(42.2-75.2)
Lymphocytes % 13.6 L %
(20.5-51.1)
BUN 23 H mg/dl
(7-17)
Creatinine 1.1 H mg/dL
(0.6-1.0)
Glucose 125 H mg/dl
(70-99)
Ur Occult Blood Reflex 1+ A
(Negative)
Leukocyte Esterase Rfl 2+ A
(Negative)
Urine Bacteria (Reflex) Moderate A
(Negative)
Urine Albumin (Reflex) 2+ A
(Neg - Trace)
05/29/25 12:57
05/29/25 12:56
Vital Signs
Initial and Last Documented VS:
Initial Vital Signs
Temp Pulse Resp BP Pulse Ox
98.2 F 69 16 140/72 98
05/29/25 12:46 05/29/25 12:46 05/29/25 12:46 05/29/25 12:46 05/29/25 12:46
Last Documented Vital Signs
Temp Pulse Resp BP Pulse Ox
98.2 F 83 21 143/51 94
05/29/25 19:30 05/29/25 21:00 05/29/25 21:00 05/29/25 21:00 05/29/25 20:00
*Radiology
Radiology exam reviewed: radiology read reviewed
*Pulse Oximetry
SaO2: 98
Oxygen Mode of Delivery: Room air
Patient hypoxic: no
*Critical Care Note
Total Time (30-74mins, 75-104mins- exclusive of procedures): Not Applicable
Update Note
Update Note:
Patient to the emergency department for evaluation of nausea vomiting diarrhea and diffuse abdominal pain. She reports that she was admitted approximately 2 weeks ago for atrial fibrillation and reports that the symptoms have been increasing since
that admission. She does admit to having these symptoms in the past but not at the frequency at which she is having it now. She denies any fever or chills. She denies any urinary symptoms. She denies any aggravating or alleviating factors.
Vital signs stable she remains afebrile. Labs reviewed WBC 12.1 BUN 23 creat 1.1. LFTs normal. UA reviewed 6-10 WBCs with 16-20 squamous cells. Urine culture is pending. CT of abdomen pelvis completed. 'Report of abnormal enhancement of the
right kidney raising concern for pyelonephritis. If this does not clinically correlate clinically underlying masses cannot be excluded and nonemergent MRI examination would be recommended'. She is afebrile. She denies any fever at home. Patient
without any back pain. No CVA tenderness. She has no burning with urination. UA not alarming for UTI, culture is pending. Discussed CT report with patient and her spouse. Will discharge home tonight and she will follow-up with PCP in the
morning to schedule an outpatient MRI of her kidney. She will also follow-up with GI for her ongoing intermittent nausea vomiting and abdominal discomfort. She was given instructions on signs and symptoms to return to the emergency department and
she is agreeable to this plan. Case discussed with . She agrees with findings and plan
ED Attending Note
-
Portions of this chart may have been created with voice recognition software.� Occasional wrong word or��sound alike� substitutions may have occurred due to the inherent limitations of voice recognition software.
Discharge Plan
Departure
Patient Disposition: Home (Routine Discharge)
Date of Disposition: 05/29/25
Time of Disposition: 22:55
Patient with high blood pressure during this ER visit?: No
Condition: Good
Covid-19: Not Applicable
Discharge Problem:
Abdominal pain
Instructions: Abdominal Pain
Prescriptions:
New
ondansetron 4 mg tablet,disintegrating
4 mg PO Q4H PRN (Reason: nausea and vomiting) Qty: 12 0RF
No Action
acetaminophen [Tylenol] 325 mg Tablet
650 mg PO Q6HPRN PRN (Reason: mild pain)
carboxymethylcellulose sodium [Refresh Tears] 0.5 % Drops
1 drp BOTH EYES TID
levothyroxine [Synthroid] 50 mcg Tablet
50 mcg PO DAILY
timolol 0.5 % Drops
1 drp RIGHT EYE DAILY
Lumigan 0.01 % Drops
1 drp BOTH EYES HS
atorvastatin 40 mg Tablet
80 mg PO QPM 30 Days Qty: 60 0RF
melatonin 5 mg Tablet
5 mg PO HS Qty: 0 0RF
Eliquis 5 mg Tablet
5 mg PO BID 30 Days Qty: 60 0RF
polyethylene glycol 3350 17 gram Powder In Packet
17 g PO DAILY Qty: 0 0RF
sennosides-docusate sodium [Senna Plus] 8.6-50 mg Tablet
1 tab PO BID Qty: 0 0RF
metoprolol succinate 25 mg Tablet Extended Release 24 Hr
25 mg PO DAILY 30 Days Qty: 30 0RF
Referrals:
Abdullahi Perdomo Jr., DO [Family Provider, Internal Medicine] - Tomorrow
Kendy Rdz MD [Active, Gastroenterology] - Call in 1-3 days for appt
Activity Restrictions/Additional Instructions:
Please follow up with your family doctor in 1-2 days. As we discussed, you will need an outpatient MRI for futher evaluation of your right kidney. Follow up with Dr. Rdz for further evaluation of your ongoing nausea/vomiting. Return to the
emergency department immediately for any changes in/worsening of your symptoms.
Interventions
Interventions:
*Risk Screen - Suicide Last Done: 05/29/25 12:49
*General Assessment Last Done: 05/29/25 18:19
*Neglect/Abuse Screening Last Done: 05/29/25 12:49
*ED- Fall Risk Assessment Last Done: 05/29/25 18:19
*ED COVID-19 Vaccine History Last Done: 05/29/25 18:19
*ED Influenza Vaccine History Last Done: 05/29/25 18:19
JA-Borgfh-Yikuehsrlw Assessment Last Done: 05/29/25 19:31
Discharge Date and Time
Print Language: TAMAZIGHT
[2025-05-29] MEDS: ZOFRAN 4 MG IV (18:25)
[2025-05-29] MEDS: NSS 1000 IV (18:25)
[2025-05-29 22:11] LABS: Urine Character Slightly Cloudy (Clear)
[2025-05-29 22:17] LABS: Urine Squamous Cell 16-20 /LPF (Few)
[2025-05-29 22:18] LABS: Urine Red Blood Cell 0-2 /HPF (0-2)
== END 2025-05-29 23:28 | disposition home or self-care (01) ==
LOC: EMR 12:42
PROVIDERS: Emergency Medicine; Nurse Practitioner; EMERGENCY PHYSICIAN Emergency Medicine; FAMILY PHYSICIAN Family Medicine
DX: R10.9 Unspecified abdominal pain (principal); I48.91 Unspecified atrial fibrillation; K21.9 Gastro-esophageal reflux disease without esophagitis; Z79.01 Long term (current) use of anticoagulants
CPT/HCPCS: 99284; 96374; 96361; 74177; 80053; 81003; 81015; 83690; 85025; 87086; Q9967

== ENCOUNTER → 2025-07-09 10:43 | Outpatient (REF) | payer MEDICARE, OTHER, SELFPAY | LOC: WDC 10:43 | PROVIDERS: ATTENDING PHYSICIAN Obstetrics & Gynecology; FAMILY PHYSICIAN Family Medicine | DX: Z12.31 Encounter for screening mammogram for malignant neoplasm of breast (principal) | CPT/HCPCS: 77063; 77067 ==